=== PATIENT | female | born 1940 | race Caucasian/White ===

== ENCOUNTER 2016-04-11 12:34 | Inpatient (IN) | payer OTHER, MEDICARE ==
[~2016-04-11] VITALS: Ht 142.2 cm; Wt 63.5 kg
[~2016-04-11 12:34] MED LIST: ATENOLOL25 M1 PO; FLEXERIL 10MG T10 MG PO; HYDROCHLOROTHIA25 M1 PO; LISINOPRIL20 M1 PO; MEDROL 2 MG TABL2 MG PO; SIMVASTATIN40 M1 PO; TYLENOL #31 TAB PO
--- NOTE | 2016-04-11 12:47 | NUR ---
PT TO ED FOR HYPOTENSION AND LOW RBC'S. PT WAS AT DR LEWIS'S OFFICE TODAY FOR IVF FOR DEHYDRATION AND WAS FOUND TO HAVE A BP OF 70/50 AND BLOODWORK SHOWED HGB OF 8. PT C/O DIZZINESS, WEAKNESS, DEHYDRATION AND LETHARGY. PH HAD CHEMO TREATMENT 1 WEEK AGO ON 04/04. PT'S LCW PORT ALREADY ACCESSED PEG DRIVER. PT DENIES ANY PAIN. CHANGED INTO GOWN. AWAITING PROVIDER EVAL.
--- NOTE | 2016-04-11 12:50 | NUR ---
PT TO ROOM 18 IN W/C. BP NOTED SIGNIFICANTLY IMPROVED FROM [facility]. AWAKE AND ALERT. AWAITING EVAL.
[2016-04-11] MEDS ORDERED: ASPIRIN81 M4 PO (12:52)
[2016-04-11] MEDS ORDERED: FOLIC ACID1 M1 PO (12:53)
[2016-04-11] MEDS ORDERED: DAILY MULTIPLE1 EACH PO (12:54)
[2016-04-11] MEDS ORDERED: PYRIDOXINE HCL500 MG PO (12:56)
--- NOTE | 2016-04-11 13:02 | NUR ---
SEEN BY NUZHAT MCKEON.
--- NOTE | 2016-04-11 13:16 | ED AMS/SEIZURE/WEAK/DIZZY ---
History of Present Illness General Chief Complaint: General Adult Stated Complaint: SENT BY CANCER FOR BLOOD TRANSFUSION Source: patient, family, old records, PCP Exam Limitations: no limitations Allergies Coded Allergies: NO KNOWN ALLERGIES (11/30/15) Reconcile Medications Aspirin (Aspirin*) 81 MG TAB.CHEW 1 TAB PO DAILY HEART HEALTH (Reported) Atenolol 25 MG TABLET 1 TAB PO DAILY HEART (Reported) Folic Acid 1 MG TABLET 1 TAB PO DAILY SUPPLEMENT (Reported) Hydrochlorothiazide 25 MG TABLET 1 TAB PO DAILY WATER PILL (Reported) Lisinopril 20 MG TABLET 1 TAB PO DAILY HEART (Reported) Multivitamin (Daily Multiple Vitamin) 1 EACH TABLET 1 TAB PO DAILY SUPPLEMENT (Reported) Pyridoxine HCl 500 MG TABLET 1 TAB PO DAILY SUPPLEMENT (Reported) Simvastatin (Simvastatin*) 40 MG TABLET 1 TAB PO QPM CHOLESTEROL (Reported) Triage Note: PT TO ED FOR HYPOTENSION AND LOW RBC'S. PT WAS AT DR LEWIS'S OFFICE TODAY FOR IVF FOR DEHYDRATION AND WAS FOUND TO HAVE A BP OF 70/50 AND BLOODWORK SHOWED HGB OF 8. PT C/O DIZZINESS, WEAKNESS, DEHYDRATION AND LETHARGY. PH HAD CHEMO TREATMENT 1 WEEK AGO ON 04/04. 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 PT DENIES ANY PAIN. CHANGED INTO GOWN. AWAITING PROVIDER EVAL. Triage Nurses Notes Reviewed? yes HPI: 75-year-old female with breast cancer, currently on chemotherapy, recently had her fifth of 6 treatments last , she gets chemotherapy every 3 weeks, sees Dr. martinez from the cancer Center, she was there today because of generalized weakness. Over the last few weeks, she has had significant diarrhea and loss of appetite. She states she does not eat or drink anything throughout the day. Her diarrhea is loose brown and watery and she hasn't multiple times per day. She is feeling generalized weakness fatigue and loss of appetite. At the appointment today her blood pressure was 70, she was given IV fluids which did not help her symptoms and she was sent here for evaluation and probable admission. They jaime labs, hemoglobin of 8, Dr. martinez recommends giving her a transfusion of blood as well. I discussed the patient with him. She denies any abdominal pain, no fever, no cough or congestion. Symptoms are moderate (MIKE NOLAND,DOLORES) Vital Signs & Intake/Output Vital Signs & Intake/Output Vital Signs Date Time Temp Pulse Resp B/P Pulse O2 O2 Flow FiO2 Ox Delivery Rate 04/14 2333 98.0 87 18 160/80 97 Room Air 04/14 1529 97.7 61 18 160/72 97 04/14 0952 150/70 04/14 0952 150/70 04/14 0815 98.4 80 20 160/80 97 Room Air ED Intake and Output 04/15 0000 04/14 1200 Intake Total 600 70 Output Total 600 Balance 0 70 Intake, IV 20 Intake, Oral 600 50 Number 1 3 Bowel Movements Output, Urine 600 Past History Travel History Traveled to [place] past 21 day No Medical History Any Pertinent Medical History? see below for history Cardiovascular: hypertension, hyperlipidemia Cancer(s): breast cancer Surgical History Surgical History: masectomy Psychosocial History What is your primary language Sudanese Tobacco Use: Quit >30 days ago ETOH Use: denies use Illicit Drug Use: denies illicit drug use Family History Hx Contributory? No (DOLORES FUNES) Review of Systems Review of Systems Constitutional: Reports: see HPI. EENTM: Reports: no symptoms. Respiratory: Reports: no symptoms. Cardiovascular: Reports: no symptoms. GI: Reports: diarrhea. Genitourinary: Reports: no symptoms. Musculoskeletal: Reports: no symptoms. Skin: Reports: no symptoms. Neurological/Psychological: Reports: no symptoms. Hematologic/Endocrine: Reports: no symptoms. Immunologic/Allergic: Reports: no symptoms. All Other Systems: Reviewed and Negative (DOLORES FUNES) Physical Exam Physical Exam General Appearance: no apparent distress Comments: Mildly cachectic female, appears mildly pale, Lying on stretcher in no acute distress HEENT: Atraumatic, extraocular motion intact Neck: Supple, no lymphadenopathy Back: Nontender Respiratory: No respiratory distress clear to auscultation bilateral. Heart: Regular rate and rhythm no murmur Abdomen: Soft nontender nondistended normal bowel sounds Extremities: No edema, full range of motion Neuro: Alert and oriented x3 Psych: Mood affect normal, normal memory normal judgment. Skin: Warm and dry, no rash on exposed skin Core Measures ACS in differential dx? Yes CVA/TIA Diagnosis: No Severe Sepsis Present: No Septic Shock Present: No (DOLORES FUNES) Progress Differential Diagnosis: arrythmia, alcohol intoxication, anemia, benign positional vertigo, CVA/stroke, dehydration, drug intoxication, encephalitis, electrolyte imbalance, GI bleed, hypoglycemia, hypoxia, intracranial Hem., intracranial mass/tumor, labrynthitis, meningitis, Meniere's disease, migraine ENRIQUEZ, multiple sclerosis, pneumonia, postural hypotension, presyncope, post- traumatic vertigo, sepsis, seizure disorder, subarachnoid Hem., UTI/pyelo, vertebrobasilar insuff Initial ED EKG: NSR, 82 bpm,. diffuse ns t wave inversion, new from previous from 11/25 Rhythm Strip: normal sinus rhythm Comments: Potassium 2.9 and magnesium 0.7. She has a slightly abnormal EKG with nonspecific findings of diffuse T-wave inversion which is new from her previous. I suspect this may be due to her I abnormalities. She is given 40 mEq of potassium by mouth, 20 mEq of potassium IV, 2 g of magnesium IV, a liter of IV fluid and a unit of packed red blood cells was also ordered for her due to a hemoglobin of 7 and hematocrit of 22 with patient being symptomatic with generalized weakness as recommended by her oncologist. She was seen by Dr. Lim as well. We'll admit her to the telemetry floor. Call placed to Dr. Mosqueda. ([facility] NUZHATDOLORES) Plan of Care: Orders Procedure Date/time Status MAGNESIUM 04/15 599 Active CBC WITHOUT DIFFERENTIAL 04/15 599 Active BASIC ELECTROLYTES PLUS BUN&CR 04/15 599 Active PT Evaluate & Treat 04/14 UNK Active Current Medications Sig/Colten Start time Last Medication Dose Stop Time Status Admin Simethicone 40 MG Q6P PRN 04/15 0130 AC (Mylicon) Potassium Chloride 20 MEQ ONCE ONE 04/14 0945 CAN (Klor) 04/14 0946 Sodium Chloride 2 SPRAY Q4P PRN 04/12 0745 AC (Nasal) Departure Departure Disposition: STILL A PATIENT Condition: Stable Clinical Impression Primary Impression: Hypomagnesemia Secondary Impressions: Abnormal EKG Diarrhea Qualifiers: Diarrhea type: unspecified type Qualified Code: R19.7 - Diarrhea, unspecified Hypokalemia Hyponatremia Hypotension Qualifiers: Hypotension type: other hypotension type Qualified Code: I95.89 - Other hypotension Symptomatic anemia Referrals: KLEBER MOSQUEDA MD (PCP/Family) Departure Forms: Customer Survey General Discharge Information Admission Note Spoke With: KLEBER MOSQUEDA MD Documentation of Exam: Documentation of any treatments & extenuating circumstances including Concerns Regarding Discharge (functional status, medication knowledge or non-compliance, living conditions, etc.) that warrant an admission rather than observation: 75-year-old female on chemotherapy with several weeks of diarrhea, any of generalized weakness, hypotension, dehydration, hypomagnesemic and hypokalemic with EKG changes. Requires supplementation, she is felt outpatient treatment. She will require several days of replenishment and serial checks of her potassium and magnesium (DOLORES FUNES) PA/RECRUITING AND SELECTION CONSULTANT Co-Sign Statement Statement: ED Attending supervision documentation- [X] I saw and evaluated the patient. I have also reviewed all the pertinent lab results and diagnostic results. I agree with the findings and the plan of care as documented in the PA's/RECRUITING AND SELECTION CONSULTANT's documentation. [] I have reviewed the ED Record and agree with the PA's/RECRUITING AND SELECTION CONSULTANT's documentation. [] Additions or exceptions (if any) to the PAs/RECRUITING AND SELECTION CONSULTANT's note and plan are summarized below: [] (SARAY RIVERO,DOUGLAS Hendricks) Critical Care Note Critical Care Note Critical Care Time: 30-74 min (DOLORES FUNES)
--- NOTE | 2016-04-11 13:41 | NUR ---
MEDICATED PER EMAR FOR C/O DIARRHEA. NO OTHER ACUTE COMPLAINTS PRESENTLY. BLOOD DRAWN FROM PORT (SST/LAV/BLUE/LAY/PINK) AND PORT HEP-LOCKED PER PROTOCOL. UP TO COMMODE WITH ASSIST FROM FAMILY, URINE TRIO SENT. NO COMPLAINTS AT THIS TIME, AWAITING RESULTS.
[2016-04-11 13:48] LABS: ABSOLUTE BASOPHIL COUNT 0 /CUMM (0.0-0.2); ABSOLUTE EOSINOPHIL COUNT 0 /CUMM (0.0-0.7); ABSOLUTE GRANULOCYTE CT 4.6 /CUMM (1.4-6.5); ABSOLUTE LYMPH COUNT 1.4 /CUMM (1.2-3.4); ABSOLUTE MONOCYTE COUNT 1.2 /CUMM (0.10-0.60); BASOPHIL % 0.3 % (0.0-2.0); EOSINOPHIL % 0.1 % (0-5); GRANULOCYTE % 63.4 % (42.2-75.2); HEMATOCRIT 22.7 % (37-47); MEAN CORPUSCULAR HGB 31.1 PG (27.0-31.0); MEAN CORPUSCULAR HGB CONC 33.5 G/DL (33.0-37.0); MEAN CORPUSCULAR VOLUME 92.7 FL (81.0-99.0); MEAN PLATELET VOLUME 9.5 FL (7.4-10.4); RBC DISTRIBUTION WIDTH 19.6 % (11.5-14.5); RED BLOOD CELL CT 2.44 /CUMM (4.20-5.40); WHITE BLOOD CELL COUNT 7.3 /CUMM (4.8-10.8)
[2016-04-11 14:00] LABS: PLATELET COUNT 60 /CUMM (130-400)
--- NOTE | 2016-04-11 14:05 | NUR ---
LAB AT BEDSIDE FOR ABO CONFIRMATION. FAMILY REQUESTING ANOTHER RN DRAW OFF PT'S PORT, WAXER STATING IT NEEDS TO BE DONE BY HIM. PT AGREES TO ATTEMPT FOR PERIPHERAL DRAW.
--- NOTE | 2016-04-11 14:12 | NUR ---
CRITICAL TEST RESULTS [id number] LAMONT WILKES 75 F TESTS AND RESULTS: K 2.9, MAG 0.7 Results received and read back by: ANNA HEWITT Results received date and time: 04/11/16 1412 The following provider was notified of the results, and read the results back: NUZHAT MCKEON Notified date and time: 04/11/16 at 1410
--- NOTE | 2016-04-11 14:34 | NUR ---
PER PA PT TO GET MAG FIRST F/B IV K, ORAL K GIVEN WITHOUT ISSUE.
--- NOTE | 2016-04-11 14:55 | NUR ---
PLACED ON TELE MONITOR, NSR 80S. 2ND BAG MAG SULFATE INFUSING. KCL TO INFUSE AFTER. PT AND FAMILY REFUSING PIV PLACEMENT AT THIS TIME, AWARE THAT THIS WILL DELAY TRANSFUSION AND STILL REFUSING PT CAN ONLY HAVE PIV PLACED IN LEFT ARM R/T PRIOR SURGERY AND HAS LIMITED ACCESS IN THAT ARM. TELE RESIDENT NOTIFIED AND NNO AT THIS TIME.
--- NOTE | 2016-04-11 15:22 | History & Physical ---
See Addendum SCAR RIVEROMARGRET 04/11/16 1521: General Information and HPI MD Statement: I have seen and personally examined LAMONT WILKES and documented this H&P. The patient is a 75 year old F who presented with a patient stated chief complaint of weakness, diarrhea and electrolyte abnormality. Source of Information: patient, family, old records Exam Limitations: no limitations History of Present Illness: Ms. Lamont Wilkes is a pleasant 75 year old female with PMH HTN, HLD and right breast cancer s/p lumpectomy currently on chemotherapy who was sent in from her oncologist Dr. Radha Guzman's office for electrolyte abnormality and anemia. Per patient, she had her 5th out of 6th round of chemotherapy on , 04/04/16, after which she developed diarrhea beginning on Friday, . Since Friday, she has had daily, 5-6 episodes of non-bloody, brown diarrhea that is noted to be watery. Associated symptoms with this diarrhea include weakness, decreased appetite and decreased oral intake. Patient has tried immodium to no avail. Due to unrelenting diarrhea, patient scheduled an appointment with Dr. Prabhakar today, at which time she was noted to be hypotensive , dehydrated and weak with electrolyte abnormalities including hypomagnesmia, hypokalemia and anemia. Currently, patient denies fever, chills, dizziness, chest pain, palpitaitons, shortness of breath, nausea, vomiting, abdominal pain, cramps, dysuria, foul smelling urine, hematuria or difficulty ambulating. Social history is negative for alcohol, tobacco and illicit drug use. Past surgical history is only significant for right breast cancer s/p lumpectomy on 12/01/15. She follows with Dr. Radha Guzman as her oncologist and Dr. Mosqueda as her PCP. She is functionally independant and ambulates without assistance. Allergies/Medications Allergies: Coded Allergies: NO KNOWN ALLERGIES (11/30/15) Home Med list Aspirin (Aspirin*) 81 MG TAB.CHEW 1 TAB PO DAILY HEART HEALTH (Reported) Atenolol 25 MG TABLET 1 TAB PO DAILY HEART (Reported) Folic Acid 1 MG TABLET 1 TAB PO DAILY SUPPLEMENT (Reported) Hydrochlorothiazide 25 MG TABLET 1 TAB PO DAILY WATER PILL (Reported) Lisinopril 20 MG TABLET 1 TAB PO DAILY HEART (Reported) Multivitamin (Daily Multiple Vitamin) 1 EACH TABLET 1 TAB PO DAILY SUPPLEMENT (Reported) Pyridoxine HCl 500 MG TABLET 1 TAB PO DAILY SUPPLEMENT (Reported) Simvastatin (Simvastatin*) 40 MG TABLET 1 TAB PO QPM CHOLESTEROL (Reported) Compliance With Home Meds: GOOD Past History Travel History Traveled to [place] past 21 day No Medical History Cardiovascular: hypertension, hyperlipidemia Cancer(s): breast cancer Surgical History Surgical History: masectomy Past Family/Social History Psychosocial History Where do you live? Home Who Do You Live With? spouse Primary Language: Brazilian Smoking Status: Never Smoked ETOH Use: denies use Illicit Drug Use: denies illicit drug use Functional Ability ADLs Independent: dressing, eating, toileting, bathing. Ambulation: independent IADLs Independent: shopping, housework, finances, food prep, telephone, transportation , medication admin. Review of Systems Review of Systems Constitutional: Reports: malaise, weakness. Denies: chills, fever, unexplained weight loss. EENTM: Reports: throat pain (S/P chemotherapy). Denies: blurred vision, visual changes , nasal congestion, epistaxis. Cardiovascular: Denies: chest pain, edema, orthopena, palpitations, peripheral edema, syncope. Respiratory: Denies: cough, orthopnea, short of breath, sputum production, wheezing. GI: Reports: diarrhea. Denies: abdominal pain, bloating, constipation, distention, bowel incontinence, melena, nausea, bloody stool, vomiting. Genitourinary: Denies: dysuria, hematuria, pain, urgency. Musculoskeletal: Denies: joint pain. Skin: Denies: lesions, rash. Neurological/Psychological: Denies: confusion, headache, paresthesia. Hematologic/Endocrine: Denies: bruising, bleeding. Immunologic/Allergic: Denies: splenectomy. All Other Systems: Reviewed and Negative Exam & Diagnostic Data Last 24 Hrs of Vital Signs/I&O Vital Signs Date Time Temp Pulse Resp B/P Pulse O2 O2 Flow FiO2 Ox Delivery Rate 04/11 1803 98.1 66 18 106/62 98 Room Air 04/11 1648 97.5 79 18 102/51 97 Room Air 04/11 1528 97.2 72 20 98/50 99 Room Air 04/11 1438 96 04/11 1406 98.1 70 20 86/46 96 Room Air 04/11 1246 97.5 84 18 111/52 99 Intake & Output 04/11 1600 04/11 0800 04/11 0000 Intake Total 200 Output Total 60 Balance 140 Intake, Oral 200 Number 1 Bowel Movements Output, Urine 60 Patient 140 lb Weight Physical Exam General Appearance Alert, Oriented X3, Cooperative, No Acute Distress Skin No Rashes, No Significant Lesion, Skin surrounding left wall port clean, intact without signs of erythema or infection. Port covered by clean bandage. HEENT Atraumatic, PERRLA, EOMI, Dry mucous membranes Neck Supple, No JVD Lymphatic Cervical nl Cardiovascular Regular Rate, Normal S1, Normal S2, No Murmurs Lungs Clear to Auscultation, Normal Air Movement Abdomen Normal Bowel Sounds, Soft, No Tenderness, No Masses Neurological Normal Speech, Normal Tone Extremities No Clubbing, No Cyanosis, Minimal bilateral lower extremity edema Vascular Pulses Symmetrical Last 24 Hrs of Labs/Pavel: Laboratory Tests 04/11/16 1336: Urinalysis LIGHT H, Urine Color YEL, Urine Clarity HAZY H, Urine pH 6.0, Ur Specific [place] 1.010, Urine Protein TRACE H, Urine Ketones NEG, Urine Nitrite NEG, Urine Bilirubin NEG, Urine Urobilinogen 0.2, Ur Leukocyte Esterase TRACE H , Ur Microscopic SEDIMENT EXAMINED, Urine RBC >75 H, Urine WBC 5-10 H, Ur Epithelial Cells FEW, Urine Bacteria FEW H, Hyaline Casts RARE H, Urine Hemoglobin LARGE H, Urine Glucose NEG 04/11/16 1330: Anion Gap 8, Estimated GFR 40 L, BUN/Creatinine Ratio 15.4, Glucose 116 H, Calcium 7.6 L, Magnesium 0.7 *L, Total Bilirubin 0.5, AST 19, ALT 34, Alkaline Phosphatase 58, Troponin I < 0.01, Total Protein 4.5 L, Albumin 2.5 L, Globulin 2.0, Albumin/Globulin Ratio 1.3, CBC w Diff MAN DIFF ORDERED, RBC 2.44 L, MCV 92.7, MCH 31.1 H, RDW 19.6 H, MPV 9.5, Gran % 63.4, Lymphocytes % 19.1 L, Monocytes % 17.1 H, Eosinophils % 0.1, Basophils % 0.3, Absolute Granulocytes 4.6, Segmented Neutrophils 56, Band Neutrophils 10 H, Absolute Lymphocytes 1.4, Lymphocytes 22, Monocytes 12 H, Absolute Monocytes 1.2 H, Absolute Eosinophils 0, Absolute Basophils 0, Platelet Estimate DECREASED, Poikilocytosis 1+, Anisocytosis 1+, PUBS MCHC 33.5 Microbiology 04/11 1336 URINE ROUT: Urine Culture - RECD Diagnostic Data EKG Results NSR, HR 82, no ST changs, QTC 430. New T wave inversions noted in leads II, aVF, V3-V6. Other Results Echocardiogram 03/26/16: CONCLUSIONS Small left ventricular cavity. No obvious regional wall motion abnormalities. Normal left ventricular ejection fraction visually estimated at > 65%. Abnormal relaxation filling pattern of the left ventricle for age (stage 1 diastolic dysfunction). Normal right ventricular size and function. Normal atrial size. Mild mitral regurgitation. Trace aortic regurgitation. Mild tricuspid regurgitation. Mild pulmonary hypertension. Mildly dilated inferior vena cava. Assessment/Plan Assessment: Ms. Wilkes is a pleasant 75 year old female with PMH HTN, HLD and right breast cancer s/p partial resection in November of 2015 currently undergoing chemotherapy with Dr. Radha Guzman who was sent in from his office for anemia and electrolyte abnormalities. Patient endorsed a 6 day history of 5-6 episodes of non-bloody diarrhea daily with associated decreased oral intake of food and fluids. She currently endorses generalized weakness, throat pain and diarrhea. In the ED: Vital signs showed T 98.1, HR 84, RR 18, BP 111/52 and O2 saturation of 99% on room air. Labs showed WBC 7.3 with 10 bands, H&H 7.6/22.7, Plt 60, Na 131, K 2.9, Cl 96, HCO3 27, BUN/cre 20/1.3 (baseline cre 1), corrected Ca 8.8, Magnesium 0.7, and troponin <0.01. UA was showed high proteins, trace leukocyte esterase, >75 RBCs, 5-10 WBCs, few epithelial cells and few bacteria. EKG was obtained and showed NSR HR 82, QTC 430, and no ST changes. There were NEW T wave inversions in leads II, aVF, and V3-V6. Patient is admitted to the telemetry floor and the following is the management: 1. Acute diarrhea after chemotherapy * Patient endorses recurrent diarrhea after every round of chemotherapy * Dr. Guzman aware of the admission, will follow up recommendations * Patient s/p lamotil while in the ED * Patient reports she will attempt to eat, start heart healthy diet but consider changing diet to liquid if she does not tolerate well * IVF with NS to continue, however consider switching to D51/2NS if patient does not have proper oral intake * Guiac all stools 2. Dehydration with CHELY and hypotension * Dehydration likely 2/2 profuse diarrhea without repletion (due to decreased PO intake) * GFR dropped by >25% (baseline GFR of 55, now GFR is 40) * Patient noted to be hypotensive to 70/40 in the oncology office * S/p 1 L NS and another 500 cc bolus ordered for now * BP has responded well to fluids, watch BP closely and consider transfer to ICU if her BP drops * Hold antihypertensives for now, vital signs Q shift * Check orthostatiics * BEP for 1929, monitor renal function 3. Hypokalemia and hypomagnesemia * Likely secondary to chemotherapy, active diarrhea and poor PO intake * Patient s/p 2 gm Mag Sulfate, 30 meq total KCL and 40 meq KDur PO * F/U repeat BEP with magnesium at 1929 and replete as needed 4. T wave inversions, leads II, aVF, V3-V6 * Continuous telemetry monitoring * Cardiology consult with Dr. Manzanares placed for today, f/u recommendations * Rule out ACS with serial troponin and EKG * Prior echocardiogram was on 03/29 and showed normal EF to >65% and stage 1 diastolic dysfunction without wall motion abnormalities 4. Normocytic anemia and thrombocytopenia * Likely 2/2 current chemotherapy * Monitor CBC * Patient typed & crossed, will receive 1U PRBC today for goal Hgb >8 * Guiac all stools * Hold pharm VTE prophylaxis 5. Asymptomatic bateriuria * UA shows high proteins, trace leukocyte esterase, >75 RBCs, 5-10 WBCs, few epithelial cells and few bacteria. * Patient currently asymptomatic without dysuria, foul-smelling urine etc. * Urine culture and blood cultures x 2 sent, f/u results * Monitor for fevers, consider starting antibiotics she spikes FULL CODE DVT Prophylaxis: ALPS Mild pain pathway As Ranked By This Provider Problem List: 1. Hypomagnesemia 2. Hypokalemia 3. Symptomatic anemia 4. Hypotension Qualifiers Hypotension type: other hypotension type Qualified Code: I95.89 - Other hypotension 5. Hyponatremia 6. Diarrhea Qualifiers Diarrhea type: unspecified type Qualified Code: R19.7 - Diarrhea, unspecified 7. Abnormal EKG Core Measures/Miscellaneous Acute Coronary Syndrome ACS Diagnosis: No Cerebrovascular Accident CVA/TIA Diagnosis: No Congestive Heart Failure CHF Diagnosis: No Venous Thromboembolism VTE Risk Factors: Acute medical illness, Age > 40, Cancer/chemo/oth therapy, Obesity No [facility] VTE prophylaxis d/t: No contraindications No VTE Pharm Prophylaxis d/t: Medical contraindication (Concern for bleeding, anemia), Platelets below ref range VTE Diagnosis: No VTE Type: NONE VTE Confirmed by (Test): NONE Severe Sepsis Severe Sepsis Present: No Septic Shock Septic Shock Present: No Miscellaneous Documentation Attending Case Discussed With: Dr. Mosqueda Primary Care Physician: KLEBER MOSQUEDA MD Patient sees these Specialists Dr. Guzman Level of Patient Care: Telemetry STEPH CARTER 04/11/16 1607: Resident Review Statement Resident Statement: examined this patient, discussed with fashion styling intern, agreed with fashion styling intern, discussed with family, reviewed EMR data (avail), discussed with nursing Other Findings: This is a 75 -year-old lady with past medical history significant for hypertension, hyperlipidemia, breast cancer, on chemotherapy (fifth course of chemotherapy was last , total of 6 courses) who was sent to the ED from her oncologist office (Dr. Guzman) to receive blood transfusion. The patient reports generalized fatigue and loss of appetite for the past few weeks which worsened after she received her chemotherapy last . She also reports nausea, vomiting, diarrhea. Today at her oncologist office she was noted to be hypotensive to 70s, her symptoms did not improve with IV fluids and she was sent to the ED for further workup and evaluation. Please see above for further details. Vital signs on admission: Temperature 98.1, pulse rate 70, respiratory rate 20, blood pressure 86/46 which improved to 98/50, oxygen saturation 96% on room air. Physical exam at the time of admission: No acute distress, lying comfortably on the bed, cachectic, pale skin. HEENT: NCAT, PERRLA, EOMI, dry mucous membranes. Neck: Supple, no JVD, no carotid bruit, no lymphadenopathy. CV: RRR, no murmur. Lungs: CTA BL. Abdomen: Soft, normal bowel sounds, NT, ND. Extremities: No edema, pulses normal and symmetrical. Neurology: AAOx3, CN 3-12 intact. Normal sensation, normal reflexes. Skin: No lesion, no rash, port left side intact. Available lab and imaging data reviewed. CBC significant for hemoglobin 7.6, hematocrit 22.7. BP is significant for sodium 131, potassium 2.9, creatinine 1.3, GFR 40, calcium 7.6, magnesium 0.7, albumin 2.5. (Corrected calcium 8.7). EKG: Sinus rhythm, rate 82, T-wave inversion in lead 2, V2 through V6, no ST-T wave abnormalities. QTC 430. The patient received IV magnesium (1 g) and IV potassium (20). She also received 1 L IV normal saline bolus, blood pressure improved to 98/59 Problem list #1 hypokalemia #2 hypomagnesemia #3 EKG changes #4 anemia #5 CHELY #6 breast cancer on chemotherapy #7 Hx of hypertension: Now hypotensive. #8 hyperlipidemia #9 Positive UA; asymptomatic #10 bandemia Plan -Admit to telemetry -Vitals per protocol -Orthostatics -Check stools for Hemoccult -Rule out ACS with serial troponins and EKG -IV fluids; received 1 L normal saline bolus and 500 normal saline bolus, will maintain her on 100 mL/h normal saline as maintenance. -Patient will receive 1 unit of PRBC; goal Hgb >8 -Cardiology consult -Oncologist, Dr. Guzman aware -Received magnesium and potassium IV in the ED; recheck labs this evening and replete electrolytes accordingly. -DVT prophylaxis with Alps. -Patient is full code
--- NOTE | 2016-04-11 15:30 | NUR ---
AFTER CONSULTING PHARMACY, ED PA AND HOUSE STAFF AND COMMUNITY DEVELOPMENT PLANNER IV KCL CHANGED TO CENTRAL CONCENTRATION 20MEQ/100CC TO RUN THROUGH PORT OVER 1 HOUR. INFUSING AT THIS TIME. REMAINS ON TELE MONITOR. BLOOD TO INFUSE AFTER KCL OVER 2-3 HOURS. SEEN BY HOUSE STAFF. AWAITING ADMISSION. NO COMPLAINTS AT THIS TIME.
--- NOTE | 2016-04-11 15:46 | NUR ---
PT TOP ROOM 175 BED 1
--- NOTE | 2016-04-11 15:54 | NUR ---
VS DISCUSSED WITH TELE RESIDENT. 2ND NS BOLUS OF 500CC UP NOW. PER RESIDENT PT IS OK FOR TELE WITH BP OVER 90 SYSTOLIC.
--- NOTE | 2016-04-11 16:51 | NUR ---
REPORT CALLED TO [facility] [address]. TELE RESIDENT PAGED WITH MOST RECENT VS AND STATING PT IS STABLE FOR TELE. MSG LEFT FOR TRANSPORT. PT/FAMILY AWARE.
--- NOTE | 2016-04-11 17:10 | NUR ---
DISTRIBUTION CALLED TO CONFIRM RECIEPT OF MESSAGE AND STATING WILL BE HERE IN 5 MIN.
[2016-04-11 18:03] VITALS: BP 106/62
--- NOTE | 2016-04-11 18:29 | Admission Certification ---
Admission Certification Certification Statement - As attending physician, I certify that at the time of - admission, based on clinical presentation, severity of - symptoms, need for further diagnostic testing and - therapeutic interventions, and risk of adverse outcomes - without in-hospital treatment, in my clinical assessment, - this patient requires an acute hospital stay for a minimum - of two nights or longer. I have also considered psychsocial - factors such as support system, advanced age, financial - issues, cognitive issues, and failed out-patient treatments, - past re-admission history, safety of patient, and lack of - compliance as applicable. Specific rationale supporting this admission is: Weakness, anemia secondary to chemotherapy her breast cancer nausea, anorexia, diarrhea and electrolyte imbalance hypokalemia, hyponatremia hypomagnesemia
--- NOTE | 2016-04-11 18:33 | PN- Att Addend ---
Attending Addendum Attending Brief Note 75-year-old white female being treated for breast cancer with chemotherapy, went to see the doctor today, found to be anemic besides that she was found to be slightly dehydrated. Patient having frequent diarrhea and in the ER her electrolytes were all abnormal, with hypokalemia and hyponatremia and hypomagnesemia. Also some EKG abnormalities not present before. Patient will be admitted to telemetry, her first troponin is negative we'll replace her electrolytes needed. Will have serial troponins will get her transfusion, cardiology evaluation and oncology follow-up. Laboratory Tests 04/11 04/11 1336 1330 Chemistry Sodium (137 - 145 mmol/L) 131 L Potassium (3.5 - 5.1 mmol/L) 2.9 *L Chloride (98 - 107 mmol/L) 96 L Carbon Dioxide (22 - 30 mmol/L) 27 Anion Gap (5 - 16) 8 BUN (7 - 17 mg/dL) 20 H Creatinine (0.5 - 1.0 mg/dL) 1.3 H Estimated GFR (>60 ml/min) 40 L BUN/Creatinine Ratio (7 - 25 %) 15.4 Glucose (65 - 99 mg/dL) 116 H Calcium (8.4 - 10.2 mg/dL) 7.6 L Magnesium (1.6 - 2.3 mg/dL) 0.7 *L Total Bilirubin (0.2 - 1.3 mg/dL) 0.5 AST (14 - 36 U/L) 19 ALT (9 - 52 U/L) 34 Alkaline Phosphatase (<127 U/L) 58 Troponin I (< 0.11 ng/ml) < 0.01 Total Protein (6.3 - 8.2 g/dL) 4.5 L Albumin (3.5 - 5.0 g/dL) 2.5 L Globulin (1.9 - 4.2 gm/dL) 2.0 Albumin/Globulin Ratio (1.1 - 2.2 %) 1.3 Hematology CBC w Diff MAN DIFF ORDERED WBC (4.8 - 10.8 /CUMM) 7.3 RBC (4.20 - 5.40 /CUMM) 2.44 L Hgb (12.0 - 16.0 G/DL) 7.6 L Hct (37 - 47 %) 22.7 L MCV (81.0 - 99.0 FL) 92.7 MCH (27.0 - 31.0 PG) 31.1 H RDW (11.5 - 14.5 %) 19.6 H Plt Count (130 - 400 /CUMM) 60 L MPV (7.4 - 10.4 FL) 9.5 Gran % (42.2 - 75.2 %) 63.4 Lymphocytes % (20.5 - 51.1 %) 19.1 L Monocytes % (1.7 - 9.3 %) 17.1 H Eosinophils % (0 - 5 %) 0.1 Basophils % (0.0 - 2.0 %) 0.3 Absolute Granulocytes (1.4 - 6.5 /CUMM) 4.6 Segmented Neutrophils (42.2 - 75.2 %) 56 Band Neutrophils (0.0 - 5.0 %) 10 H Absolute Lymphocytes (1.2 - 3.4 /CUMM) 1.4 Lymphocytes (20.5 - 51.1 %) 22 Monocytes (1.7 - 9.3 %) 12 H Absolute Monocytes (0.10 - 0.60 /CUMM) 1.2 H Absolute Eosinophils (0.0 - 0.7 /CUMM) 0 Absolute Basophils (0.0 - 0.2 /CUMM) 0 Platelet Estimate (ADEQUATE) DECREASED Poikilocytosis 1+ Anisocytosis 1+ PUBS MCHC (33.0 - 37.0 G/DL) 33.5 Urines Urinalysis LIGHT H Urine Color (YEL,AMB,STR) YEL Urine Clarity (CLEAR) HAZY H Urine pH (5.0 - 8.0) 6.0 Ur Specific [place] (1.001 - 1.035) 1.010 Urine Protein (NEG,<30 MG/DL) TRACE H Urine Ketones (NEG) NEG Urine Nitrite (NEG) NEG Urine Bilirubin (NEG) NEG Urine Urobilinogen (0.1 - 1.0 EU/dl) 0.2 Ur Leukocyte Esterase (NEG) TRACE H Ur Microscopic SEDIMENT EXAMINED Urine RBC (0 - 5 /HPF) >75 H Urine WBC (0 - 2 /HPF) 5-10 H Ur Epithelial Cells (NONE,FEW) FEW Urine Bacteria (NEG/NONE) FEW H Hyaline Casts (0/LPF) RARE H Urine Hemoglobin (NEG) LARGE H Urine Glucose (N MG/DL) NEG
--- NOTE | 2016-04-11 19:49 | Cons- Cardiology ---
General Information and HPI Consulting Request Date of Consult: 04/11/16 Requested By: KLEBER REYNOSO MD Reason for Consult: Abnormal electrocardiogram in the setting of multiple electrolyte abnormalities and anemia. Source of Information: patient, old records Exam Limitations: no limitations History of Present Illness: I am asked to see this 75-year-old female because of EKG abnormalities. This patient has a history of hypertension and dyslipidemia under good control. She has no history of heart disease. She does not give a history of chest pain on exertion, dyspnea on exertion, palpitations or any other cardiac symptoms. She is recently being treated with chemotherapy for breast cancer. After her last treatment she developed severe diarrhea and dehydration. She was seen by her oncologist today who sent her to the hospital where she was found to have BUN of 20, creatinine 1.3, sodium 131, potassium 2.9, magnesium 0.7, calcium 7.6. Initial troponin was negative. Hemoglobin was 7.6 and hematocrit 22.7. So far she has had her electrolytes repleted and is receiving blood. Repeat chemistries and CBCs are pending. She is feeling much better. Allergies/Medications Allergies: Coded Allergies: NO KNOWN ALLERGIES (11/30/15) Home Med List: Aspirin (Aspirin*) 81 MG TAB.CHEW 1 TAB PO DAILY HEART HEALTH (Reported) Atenolol 25 MG TABLET 1 TAB PO DAILY HEART (Reported) Folic Acid 1 MG TABLET 1 TAB PO DAILY SUPPLEMENT (Reported) Hydrochlorothiazide 25 MG TABLET 1 TAB PO DAILY WATER PILL (Reported) Lisinopril 20 MG TABLET 1 TAB PO DAILY HEART (Reported) Multivitamin (Daily Multiple Vitamin) 1 EACH TABLET 1 TAB PO DAILY SUPPLEMENT (Reported) Pyridoxine HCl 500 MG TABLET 1 TAB PO DAILY SUPPLEMENT (Reported) Simvastatin (Simvastatin*) 40 MG TABLET 1 TAB PO QPM CHOLESTEROL (Reported) Current Medications: Current Medications Sig/Colten Start time Last Medication Dose Route Stop Time Status Admin Aspirin 81 MG DAILY 04/11 1750 AC PO Atorvastatin Calcium 20 MG 1700 04/11 1700 AC PO Diphenoxylate HCl/ 2.5 MG ONCE ONE 04/11 1315 DC 04/11 Atropine PO 04/11 1316 1320 Folic Acid 1 MG DAILY 04/12 1000 AC PO Magnesium Sulfate 1 GM Q2H 04/11 1415 DC 04/11 Dextrose/Water 100 ML IV 04/11 1814 1455 Multivitamins 1 TAB DAILY 04/12 1000 AC Therapeutic PO Potassium Chloride 20 MEQ ONCE ONE 04/11 1515 DC / IV 04/11 1516 1527 Potassium Chloride 0 .STK-MED ONE 04/11 1421 DC PO Potassium Chloride 40 MEQ ONCE ONE 04/11 1415 CAN PO 04/11 1416 Potassium Chloride 10 MEQ Q1H 04/11 1415 DC IV 04/11 1516 Potassium Chloride 40 MEQ ONCE ONE 04/11 1415 DC 04/11 PO 04/11 1416 1434 Prochlorperazine 5 MG Q8 PRN 04/11 1830 AC PO Sodium Chloride 1,000 ML ONCE ONE 04/11 1630 AC / IV 04/12 0229 1647 Sodium Chloride 500 ML BOLUS ONE 04/11 1600 DC 04/11 IV 04/11 1659 1553 Sodium Chloride 1,000 ML BOLUS ONE 04/11 1415 DC / IV 04/11 1514 1412 Review of Systems Review of Systems: She has no other complaints in the review of systems Past History Travel History Traveled to [place] past 21 day No Medical History Blood Transfusion Hx: No Cardiovascular: hypertension, hyperlipidemia Musculoskeletal: ARTHRITIS Cancer(s): breast cancer Surgical History Surgical History: masectomy Psychosocial History Where Do You Live? Home Who Do You Live With? spouse Primary Language: Beninese Smoking Status: Former Smoker ETOH Use: denies use Illicit Drug Use: denies illicit drug use Functional Ability ADLs Independent: dressing, eating, toileting, bathing. Ambulation: independent IADLs Independent: shopping, housework, finances, food prep, telephone, transportation , medication admin. Exam & Diagnostic Data Vital Signs and I&O Vital Signs Date Time Temp Pulse Resp B/P Pulse O2 O2 Flow FiO2 Ox Delivery Rate 04/11 1938 Room Air 04/11 1803 98.1 66 18 106/62 98 Room Air 04/11 1648 97.5 79 18 102/51 97 Room Air 04/11 1528 97.2 72 20 98/50 99 Room Air 04/11 1438 96 04/11 1406 98.1 70 20 86/46 96 Room Air 04/11 1246 97.5 84 18 111/52 99 Intake & Output 04/11 1600 04/11 0800 04/11 0000 04/10 1600 04/10 0800 04/10 0000 Intake Total 200 Output Total 60 Balance 140 Intake, Oral 200 Number 1 Bowel Movements Output, Urine 60 Patient 140 lb Weight Physical Exam: This is an elderly appearing female, bald, alert and in no distress. HEENT exam is normal Neck Veins are not distended Carotids normal Chest is clear Heart reveals regular rhythm and no murmurs Extremities good pulses no edema Labs/Pavel Results: Laboratory Tests 04/11 04/11 04/11 1945 1930 1336 Chemistry Troponin I Pending Hematology CBC w Diff Cancelled WBC Cancelled RBC Cancelled Hgb Cancelled Hct Cancelled MCV Cancelled MCH Cancelled RDW Cancelled Plt Count Cancelled MPV Cancelled PUBS MCHC Cancelled Urines Urinalysis LIGHT H Urine Color (YEL,AMB,STR) YEL Urine Clarity (CLEAR) HAZY H Urine pH (5.0 - 8.0) 6.0 Ur Specific Sells (1.001 - 1.035) 1.010 Urine Protein (NEG,<30 MG/DL) TRACE H Urine Ketones (NEG) NEG Urine Nitrite (NEG) NEG Urine Bilirubin (NEG) NEG Urine Urobilinogen (0.1 - 1.0 EU/dl) 0.2 Ur Leukocyte Esterase (NEG) TRACE H Ur Microscopic SEDIMENT EXAMINED Urine RBC (0 - 5 /HPF) >75 H Urine WBC (0 - 2 /HPF) 5-10 H Ur Epithelial Cells (NONE,FEW) FEW Urine Bacteria (NEG/NONE) FEW H Hyaline Casts (0/LPF) RARE H Urine Hemoglobin (NEG) LARGE H Urine Glucose (N MG/DL) NEG 04/11 1330 Chemistry Sodium (137 - 145 mmol/L) 131 L Potassium (3.5 - 5.1 mmol/L) 2.9 *L Chloride (98 - 107 mmol/L) 96 L Carbon Dioxide (22 - 30 mmol/L) 27 Anion Gap (5 - 16) 8 BUN (7 - 17 mg/dL) 20 H Creatinine (0.5 - 1.0 mg/dL) 1.3 H Estimated GFR (>60 ml/min) 40 L BUN/Creatinine Ratio (7 - 25 %) 15.4 Glucose (65 - 99 mg/dL) 116 H Calcium (8.4 - 10.2 mg/dL) 7.6 L Magnesium (1.6 - 2.3 mg/dL) 0.7 *L Total Bilirubin (0.2 - 1.3 mg/dL) 0.5 AST (14 - 36 U/L) 19 ALT (9 - 52 U/L) 34 Alkaline Phosphatase (<127 U/L) 58 Troponin I (< 0.11 ng/ml) < 0.01 Total Protein (6.3 - 8.2 g/dL) 4.5 L Albumin (3.5 - 5.0 g/dL) 2.5 L Globulin (1.9 - 4.2 gm/dL) 2.0 Albumin/Globulin Ratio (1.1 - 2.2 %) 1.3 Hematology CBC w Diff MAN DIFF ORDERED WBC (4.8 - 10.8 /CUMM) 7.3 RBC (4.20 - 5.40 /CUMM) 2.44 L Hgb (12.0 - 16.0 G/DL) 7.6 L Hct (37 - 47 %) 22.7 L MCV (81.0 - 99.0 FL) 92.7 MCH (27.0 - 31.0 PG) 31.1 H RDW (11.5 - 14.5 %) 19.6 H Plt Count (130 - 400 /CUMM) 60 L MPV (7.4 - 10.4 FL) 9.5 Gran % (42.2 - 75.2 %) 63.4 Lymphocytes % (20.5 - 51.1 %) 19.1 L Monocytes % (1.7 - 9.3 %) 17.1 H Eosinophils % (0 - 5 %) 0.1 Basophils % (0.0 - 2.0 %) 0.3 Absolute Granulocytes (1.4 - 6.5 /CUMM) 4.6 Segmented Neutrophils (42.2 - 75.2 %) 56 Band Neutrophils (0.0 - 5.0 %) 10 H Absolute Lymphocytes (1.2 - 3.4 /CUMM) 1.4 Lymphocytes (20.5 - 51.1 %) 22 Monocytes (1.7 - 9.3 %) 12 H Absolute Monocytes (0.10 - 0.60 /CUMM) 1.2 H Absolute Eosinophils (0.0 - 0.7 /CUMM) 0 Absolute Basophils (0.0 - 0.2 /CUMM) 0 Platelet Estimate (ADEQUATE) DECREASED Poikilocytosis 1+ Anisocytosis 1+ PUBS MCHC (33.0 - 37.0 G/DL) 33.5 Diagnostic Data EKG Results Initial electrocardiogram on presentation at about 1:00 this afternoon shows sinus rhythm at a rate of 82 with diffuse nonspecific T-wave inversions her previous electrocardiogram in the system from 11/22/2015 was normal. Repeat EKG at 19:48 PM today shows sinus rhythm at a rate of 76 with very minor nonspecific T-wave changes. This is definitely improved from previous. CXR Results No chest x-ray was done. Other Results CONCLUSIONS Small left ventricular cavity. No obvious regional wall motion abnormalities. Normal left ventricular ejection fraction visually estimated at > 65%. Abnormal relaxation filling pattern of the left ventricle for age (stage 1 diastolic dysfunction). Normal right ventricular size and function. Normal atrial size. Mild mitral regurgitation. Trace aortic regurgitation. Mild tricuspid regurgitation. Mild pulmonary hypertension. Mildly dilated inferior vena cava. Wally Valle M.D. (Electronically Signed) Final Date: 27 March 2016 10:45 Assessment/Plan Assessment/Plan Mrs. Goodman presents with severe diarrhea, electrolyte depletion, dehydration, anemia. In this setting she has an abnormal electrocardiogram, showing nonspecific T-wave abnormalities. She does not have any significant underlying heart disease. She actually had an echocardiogram recently during her chemotherapy which was relatively normal. Her EKG done just now shows definite improvement in the ST and T waves. This is likely due to improvement in her electrolytes. I don't think she has any significant underlying heart disease. I think once her electrolytes are back to normal and assuming she has no arrhythmias, telemetry can be discontinued at that time, but I would keep monitoring overnight for now. She does not need a follow-up echocardiogram at this time. Copies To: BASSEM RIVERO,XENIA Barba; EDGARDO RIVERO,KLEBER Consult Acknowledgment - Thank you for your consult request.
[2016-04-11 22:22] LABS: ABSOLUTE BASOPHIL COUNT 0 /CUMM (0.0-0.2); ABSOLUTE EOSINOPHIL COUNT 0 /CUMM (0.0-0.7); ABSOLUTE GRANULOCYTE CT 7.8 /CUMM (1.4-6.5); ABSOLUTE LYMPH COUNT 0.9 /CUMM (1.2-3.4); ABSOLUTE MONOCYTE COUNT 0.8 /CUMM (0.10-0.60); BASOPHIL % 0.1 % (0.0-2.0); EOSINOPHIL % 0 % (0-5); GRANULOCYTE % 82.7 % (42.2-75.2); MEAN CORPUSCULAR HGB CONC 34.1 G/DL (33.0-37.0); MEAN CORPUSCULAR VOLUME 90.8 FL (81.0-99.0); MEAN PLATELET VOLUME 9.7 FL (7.4-10.4); PLATELET COUNT 51 /CUMM (130-400); RBC DISTRIBUTION WIDTH 17.3 % (11.5-14.5); RED BLOOD CELL CT 2.75 /CUMM (4.20-5.40); WHITE BLOOD CELL COUNT 9.5 /CUMM (4.8-10.8)
[2016-04-11 23:27] VITALS: BP 114/54
--- NOTE | 2016-04-12 04:59 | NUR ---
PT HAS BEEN HAVING DIARRHEA X3 THIS SHIFT, LOMOTIL GIVEN X1 AT 0100. PT REPORTED THAT SHE VOMITED X1 IN THE BATHROOM, BUT SHE FLUSHED IT SO I DID NOT GET TO SEE IT. PT DENIED ANY BLOOD IN HER VOMIT, STATED IT WAS "NORMAL VOMIT". PRN COMPAZINE ADMINISTERED. PT STATES SHE DID NOT HAVE A VERY BIG APPETITE AND FELT VERY NAUSEOUS WHILE TRYING TO EAT DINNER EARLIER AND SHE FEELS SHE WILL NOT BE ABLE TO EAT BREAKFAST. DR LUEVANO NOTIFIED OF THIS.
--- NOTE | 2016-04-12 06:45 | PN- Housestaff ---
Subjective Follow-up For: Hypokalemia/hypomagnesemia Acute diarrhea s/p chemotherapy Anemia T wave inversions without arrythmia CHELY Hypotension Tele-Events Since Last Visit: NSR-ST HR 75-84 with tachycardia to 119 at 6 am. no overnight events. Subjective: Patient seen and examined at bedside this AM. She is resting comfortably in bed. She endorses abdominal cramping/pain and nausea whenever she eats which is limiting her oral intake. She is requesting prochloperazine as well as a less advanced diet (she is amenable to trying a clear liquid diet). She denies chest pain or palpitations. Review of Systems Constitutional: Reports: malaise. Denies: chills, fever. EENTM: Denies: visual changes, nasal congestion. Cardiovascular: Denies: chest pain, palpitations. Respiratory: Denies: cough, sputum production. Gastrointestinal: Reports: abdominal pain, diarrhea, nausea. Denies: constipation, bloody stool, vomiting. Genitourinary: Denies: dysuria, hematuria, hesitation. Musculoskeletal: Denies: back pain. Skin: Denies: rash. Neurological/Psychological: Denies: confusion, headache. Hematologic/Endocrine: Denies: bruising, bleeding. Objective Last 24 Hrs of Vital Signs/I&O Vital Signs Date Time Temp Pulse Resp B/P Pulse O2 O2 Flow FiO2 Ox Delivery Rate 04/12 0808 97.6 74 16 154/74 97 Room Air 04/11 2327 98.0 76 12 114/54 98 Room Air 04/11 1938 Room Air 04/11 1803 98.1 66 18 106/62 98 Room Air 04/11 1648 97.5 79 18 102/51 97 Room Air 04/11 1528 97.2 72 20 98/50 99 Room Air 04/11 1438 96 04/11 1406 98.1 70 20 86/46 96 Room Air 04/11 1246 97.5 84 18 111/52 99 Intake & Output 04/12 1600 04/12 0800 04/12 0000 Intake Total 900 1280 Output Total 2 Balance 898 1280 Intake, Blood 300 Product Intake, IV 800 500 Intake, Oral 100 480 Number 2 2 Bowel Movements Output, 2 Emesis Patient 140 lb Weight Physical Exam General Appearance: Alert, Oriented X3, Cooperative, No Acute Distress Skin: No Rashes, No Significant Lesion, Skin around port clean, dry and without signs of erythema/fluctuance HEENT: Atraumatic, PERRLA, Improvement in dry oral mucosa Neck: Supple, No JVD, No LAD Cardiovascular: Regular Rate, Normal S1, Normal S2, No Murmurs Lungs: Clear to Auscultation, Normal Air Movement Abdomen: Normal Bowel Sounds, Soft, Generalized tenderness to palpation Neurological: Normal Speech, Strength at 5/5 X4 Ext, Normal Tone Extremities: No Clubbing, No Cyanosis Vascular: Pulses Symmetrical Current Medications: Current Medications Sig/Colten Start time Last Medication Dose Route Stop Time Status Admin Acetaminophen/ 1 TAB Q6P PRN 04/12 0745 AC Hydrocodone Bitart PO Aspirin 81 MG DAILY 04/11 1750 AC 04/11 PO 2203 Atorvastatin Calcium 20 MG 1700 04/11 1700 AC 04/11 PO 2227 Diphenoxylate HCl/ 2.5 MG Q6P PRN 04/12 0745 AC Atropine PO Diphenoxylate HCl/ 2.5 MG ONCE ONE 04/12 0015 DC 04/12 Atropine PO 04/12 0016 0058 Diphenoxylate HCl/ 2.5 MG ONCE ONE 04/11 1315 DC 04/11 Atropine PO 04/11 1316 1320 Folic Acid 1 MG DAILY 04/12 1000 AC PO Heparin Sodium 100 UNIT SEE ADMIN CRITERIA.. 04/12 0330 DC (Porcine) IV 04/12 0331 Heparin Sodium 100 UNIT SEE ADMIN CRITERIA.. 04/12 0115 DC (Porcine) IV 04/12 0116 Loperamide HCl 2 MG Q6P PRN 04/12 0845 AC PO Magnesium Chloride 64 MG ONCE ONE 04/12 0445 DC PO 04/12 0446 Magnesium Sulfate 1 GM Q2H 04/11 1415 DC 04/11 Dextrose/Water 100 ML IV 04/11 1814 1455 Melatonin 5 MG AT BEDTIME 04/11 2200 AC 04/11 PO 2203 Multivitamins 1 TAB DAILY 04/12 1000 AC Therapeutic PO Ondansetron HCl 4 MG Q6P PRN 04/12 0745 AC IV Potassium Chloride 60 MEQ ONCE ONE 04/12 0845 DC PO 04/12 0846 Potassium Chloride 20 MEQ ONCE ONE 04/11 1515 DC 04/11 IV 04/11 1516 1527 Potassium Chloride 0 .STK-MED ONE 04/11 1421 DC PO Potassium Chloride 40 MEQ ONCE ONE 04/11 1415 CAN PO 04/11 1416 Potassium Chloride 10 MEQ Q1H 04/11 1415 DC IV 04/11 1516 Potassium Chloride 40 MEQ ONCE ONE 04/11 1415 DC 04/11 PO 04/11 1416 1434 Prochlorperazine 5 MG Q8 PRN 04/11 1830 AC 04/12 PO 0355 Sodium Chloride 2 SPRAY Q4P PRN 04/12 0745 AC AMRIT Sodium Chloride 1,000 ML ONCE ONE 04/12 0330 AC 04/12 IV 04/12 1649 0554 Sodium Chloride 1,000 ML ONCE ONE 04/11 1630 DC 04/11 IV 04/12 0229 1647 Sodium Chloride 500 ML BOLUS ONE 04/11 1600 DC 04/11 IV 04/11 1659 1553 Sodium Chloride 1,000 ML BOLUS ONE 04/11 1415 DC 04/11 IV 04/11 1514 1412 Last 24 Hrs of Lab/Pavel Results Last 24 Hrs of Labs/Mics: Laboratory Tests 04/12/16 0600: Anion Gap 8, Estimated GFR > 60, BUN/Creatinine Ratio 17.8, Magnesium Pending 04/12/16 0230: Troponin I < 0.01 04/11/16 2200: CBC w Diff NO MAN DIFF REQ, RBC 2.75 L, MCV 90.8, MCH 31.0, RDW 17.3 H, MPV 9.7, Gran % 82.7 H, Lymphocytes % 9.3 L, Monocytes % 7.9, Eosinophils % 0, Basophils % 0.1, Absolute Granulocytes 7.8 H, Absolute Lymphocytes 0.9 L, Absolute Monocytes 0.8 H, Absolute Eosinophils 0, Absolute Basophils 0, PUBS MCHC 34.1 04/11/16 1945: Anion Gap 7, Estimated GFR 44 L, BUN/Creatinine Ratio 14.2, Magnesium 1.7, Troponin I < 0.01 04/11/16 1930: Sodium Cancelled, Potassium Cancelled, Chloride Cancelled, Carbon Dioxide Cancelled, Anion Gap Cancelled, BUN Cancelled, Creatinine Cancelled, BUN/ Creatinine Ratio Cancelled, Magnesium Cancelled, CBC w Diff Cancelled, WBC Cancelled, RBC Cancelled, Hgb Cancelled, Hct Cancelled, MCV Cancelled, MCH Cancelled, RDW Cancelled, Plt Count Cancelled, MPV Cancelled, PUBS MCHC Cancelled 04/11/16 1336: Urinalysis LIGHT H, Urine Color YEL, Urine Clarity HAZY H, Urine pH 6.0, Ur Specific Gaylord 1.010, Urine Protein TRACE H, Urine Ketones NEG, Urine Nitrite NEG, Urine Bilirubin NEG, Urine Urobilinogen 0.2, Ur Leukocyte Esterase TRACE H , Ur Microscopic SEDIMENT EXAMINED, Urine RBC >75 H, Urine WBC 5-10 H, Ur Epithelial Cells FEW, Urine Bacteria FEW H, Hyaline Casts RARE H, Urine Hemoglobin LARGE H, Urine Glucose NEG 04/11/16 1330: Anion Gap 8, Estimated GFR 40 L, BUN/Creatinine Ratio 15.4, Glucose 116 H, Calcium 7.6 L, Magnesium 0.7 *L, Total Bilirubin 0.5, AST 19, ALT 34, Alkaline Phosphatase 58, Troponin I < 0.01, Total Protein 4.5 L, Albumin 2.5 L, Globulin 2.0, Albumin/Globulin Ratio 1.3, CBC w Diff MAN DIFF ORDERED, RBC 2.44 L, MCV 92.7, MCH 31.1 H, RDW 19.6 H, MPV 9.5, Gran % 63.4, Lymphocytes % 19.1 L, Monocytes % 17.1 H, Eosinophils % 0.1, Basophils % 0.3, Absolute Granulocytes 4.6, Segmented Neutrophils 56, Band Neutrophils 10 H, Absolute Lymphocytes 1.4, Lymphocytes 22, Monocytes 12 H, Absolute Monocytes 1.2 H, Absolute Eosinophils 0, Absolute Basophils 0, Platelet Estimate DECREASED, Poikilocytosis 1+, Anisocytosis 1+, PUBS MCHC 33.5 Microbiology 04/12 0735 STOOL: Clostridium difficile Toxin A & B - ORD 04/12 0735 STOOL: Stool Culture - ORD 04/11 1650 BLOOD: Blood Culture - RECD 04/11 1625 BLOOD: Blood Culture - RECD 04/11 1336 URINE ROUT: Urine Culture - RES Orders ECHO Findings: CONCLUSIONS Small left ventricular cavity. No obvious regional wall motion abnormalities. Normal left ventricular ejection fraction visually estimated at > 65%. Abnormal relaxation filling pattern of the left ventricle for age (stage 1 diastolic dysfunction). Normal right ventricular size and function. Normal atrial size. Mild mitral regurgitation. Trace aortic regurgitation. Mild tricuspid regurgitation. Mild pulmonary hypertension. Mildly dilated inferior vena cava. Assessment/Plan Assessment: Ms. Goodman is a pleasant 75 year old female with PMH HTN, HLD and right breast cancer s/p partial resection in November of 2015 currently undergoing chemotherapy with Dr. Radha Guzman who was sent in from his office for anemia and electrolyte abnormalities. Patient endorsed a 6 day history of 5-6 episodes of non-bloody diarrhea daily with associated decreased oral intake of food and fluids. She currently endorses generalized weakness, throat pain and diarrhea. In the ED: Vital signs showed T 98.1, HR 84, RR 18, BP 111/52 and O2 saturation of 99% on room air. Labs showed WBC 7.3 with 10 bands, H&H 7.6/22.7, Plt 60, Na 131, K 2.9, Cl 96, HCO3 27, BUN/cre 20/1.3 (baseline cre 1), corrected Ca 8.8, Magnesium 0.7, and troponin <0.01. UA was showed high proteins, trace leukocyte esterase, >75 RBCs, 5-10 WBCs, few epithelial cells and few bacteria. EKG was obtained and showed NSR HR 82, QTC 430, and no ST changes. There were NEW T wave inversions in leads II, aVF, and V3-V6. Patient is admitted to the telemetry floor and the following is the management: 1. Acute diarrhea after chemotherapy * Patient endorses recurrent diarrhea after every round of chemotherapy * Dr. Guzman aware of the admission, will follow up recommendations * Continue lamotil and immodium prn * Stool culture, stool for Cdiff sent, f/u results * Continue clear liquid diet and advance as tolerated * Continue NS at 75 cc/h for now * Guiac all stools 2. Dehydration with CHELY and hypotension * Dehydration likely 2/2 profuse diarrhea without repletion (due to decreased PO intake) * GFR dropped by >25% (baseline GFR of 55, now GFR is 40) * Patient noted to be hypotensive to 70/40 in the oncology office * Continue IVF with NS at 75 cc/h * BP has responded well to fluids, watch BP closely * Hold antihypertensives for now, vital signs Q shift * Orthostatics negative * AM BEP shows normalization of CHELY with BUN/cre of 16/0.9 3. Hypokalemia and hypomagnesemia * Likely secondary to chemotherapy, active diarrhea and poor PO intake * Repeat BEP this AM shows hypokalemia to 3.3, patient given 60 meq Kdur * Mag low this AM to 1.5, 1 gm IV mag given * Follow daily BEP with mag 4. T wave inversions, leads II, aVF, V3-V6 * Continuous telemetry monitoring * Cardiology consult with Dr. Manzanares appreciated * ACS ruled out, EKG abnormalities improving with electrolyte repletion * Prior echocardiogram was on 03/29 and showed normal EF to >65% and stage 1 diastolic dysfunction without wall motion abnormalities * No arrythmias noted over night, follow cardio recs about discontinuation of tele 4. Normocytic anemia and thrombocytopenia * Likely 2/2 current chemotherapy * Patient s/p 1 U PRBC yesterday * Monitor CBC daily, Hgb today 8.5 * Guiac all stools * Hold pharm VTE prophylaxis 5. Asymptomatic bateriuria * UA shows high proteins, trace leukocyte esterase, >75 RBCs, 5-10 WBCs, few epithelial cells and few bacteria. * Patient currently asymptomatic without dysuria, foul-smelling urine etc. * Urine culture and blood cultures x 2 sent, f/u results * Monitor for fevers, consider starting antibiotics she spikes FULL CODE DVT Prophylaxis: ALPS Mild pain pathway Problem List: 1. Hypomagnesemia 2. Hypokalemia 3. Symptomatic anemia 4. Hypotension 5. Hyponatremia 6. Diarrhea 7. Abnormal EKG 8. Breast cancer Pain Ratin Pain Location: Generalized abdomen Pain Goal: Pain 4 or less Pain Plan: 1 tab Vicodin Q6 PRN for abdominal pain Tomorrow's Labs & Rationales: CBC (monitor anemia), BEP (monitor hypokalemia, hyponatremia), mag (monitor hypomagnesemia)
[2016-04-12 08:08] VITALS: BP 154/74
--- NOTE | 2016-04-12 08:27 | Cons- Oncology ---
General Information and HPI Consulting Request Date of Consult: 04/12/16 Requested By: KLEBER REYNOSO MD Reason for Consult: breast cancer, nausea/vomiting, dehydration Source of Information: patient Exam Limitations: no limitations History of Present Illness: Ms. Goodman is a 75-year-old female with stage IIA breast cancer (ER/AL-, HER2) status lumpectomy and currently receiving TCHP therapy who presented to the ED after being seen in the clinic for dehydration. She is currently on cycle 5 day 8 of her therapy. She starting feeling sick on Friday with nausea, vomiting, diarrhea, and fatigue. She was noted to be hypotensive in clinic with BP of 74/ 58. She reported lightheadedness. She denies any fever or chills. She has no shortness of breath or chest pain. In the ED, she was noted to have improved BP. Her hemoglobin was 7.6. She was severe hypokalemic with potassium of 2.9. She was given IVF and blood transfusion. She continues to have nausea and diarrhea today. She has no appetite. She has been able to eat much. Allergies/Medications Allergies: Coded Allergies: NO KNOWN ALLERGIES (11/30/15) Home Med List: Aspirin (Aspirin*) 81 MG TAB.CHEW 1 TAB PO DAILY HEART HEALTH (Reported) Atenolol 25 MG TABLET 1 TAB PO DAILY HEART (Reported) Folic Acid 1 MG TABLET 1 TAB PO DAILY SUPPLEMENT (Reported) Hydrochlorothiazide 25 MG TABLET 1 TAB PO DAILY WATER PILL (Reported) Lisinopril 20 MG TABLET 1 TAB PO DAILY HEART (Reported) Multivitamin (Daily Multiple Vitamin) 1 EACH TABLET 1 TAB PO DAILY SUPPLEMENT (Reported) Pyridoxine HCl 500 MG TABLET 1 TAB PO DAILY SUPPLEMENT (Reported) Simvastatin (Simvastatin*) 40 MG TABLET 1 TAB PO QPM CHOLESTEROL (Reported) Current Medications: Current Medications Sig/Colten Start time Last Medication Dose Route Stop Time Status Admin Acetaminophen/ 1 TAB Q6P PRN 04/12 0745 AC Hydrocodone Bitart PO Aspirin 81 MG DAILY 04/11 1750 AC 04/11 PO 2203 Atorvastatin Calcium 20 MG 1700 04/11 1700 AC 04/11 PO 2227 Diphenoxylate HCl/ 2.5 MG Q6P PRN 04/12 0745 AC Atropine PO Diphenoxylate HCl/ 2.5 MG ONCE ONE 04/12 0015 DC 04/12 Atropine PO 04/12 0016 0058 Diphenoxylate HCl/ 2.5 MG ONCE ONE 04/11 1315 DC 04/11 Atropine PO 04/11 1316 1320 Folic Acid 1 MG DAILY 04/12 1000 AC PO Heparin Sodium 100 UNIT SEE ADMIN CRITERIA.. 04/12 0330 DC (Porcine) IV 04/12 0331 Heparin Sodium 100 UNIT SEE ADMIN CRITERIA.. 04/12 0115 DC (Porcine) IV 04/12 0116 Magnesium Chloride 64 MG ONCE ONE 04/12 0445 DC PO 04/12 0446 Magnesium Sulfate 1 GM Q2H 04/11 1415 DC 04/11 Dextrose/Water 100 ML IV 04/11 1814 1455 Melatonin 5 MG AT BEDTIME 04/11 2200 AC 04/11 PO 2203 Multivitamins 1 TAB DAILY 04/12 1000 AC Therapeutic PO Ondansetron HCl 4 MG Q6P PRN 04/12 0745 AC IV Potassium Chloride 20 MEQ ONCE ONE 04/11 1515 DC 04/11 IV 04/11 1516 1527 Potassium Chloride 0 .STK-MED ONE 04/11 1421 DC PO Potassium Chloride 40 MEQ ONCE ONE 04/11 1415 CAN PO 04/11 1416 Potassium Chloride 10 MEQ Q1H 04/11 1415 DC IV 04/11 1516 Potassium Chloride 40 MEQ ONCE ONE 04/11 1415 DC 03/ PO 04/11 1416 1434 Prochlorperazine 5 MG Q8 PRN 04/11 1830 AC 04/12 PO 0355 Sodium Chloride 2 SPRAY Q4P PRN 04/12 0745 AC AMRIT Sodium Chloride 1,000 ML ONCE ONE 04/12 0330 AC 04/12 IV 04/12 1649 0554 Sodium Chloride 1,000 ML ONCE ONE 04/11 1630 DC / IV 04/12 0229 1647 Sodium Chloride 500 ML BOLUS ONE 04/11 1600 DC 04/11 IV 04/11 1659 1553 Sodium Chloride 1,000 ML BOLUS ONE 04/11 1415 DC 04/11 IV 04/11 1514 1412 Review of Systems Review of Systems Constitutional: Reports: malaise, weakness. Denies: chills, fever. Cardiovascular: Denies: chest pain. Respiratory: Denies: short of breath. GI: Reports: abdominal pain, bloating, diarrhea, nausea. Genitourinary: Denies: dysuria. Musculoskeletal: Denies: back pain. Neurological/Psychological: Denies: anxiety, ataxia. Immunologic/Allergic: Denies: lymphadenopathy. All Other Systems: Reviewed and Negative Past History Travel History Traveled to [place] past 21 day No Medical History Blood Transfusion Hx: No Cardiovascular: hypertension, hyperlipidemia Musculoskeletal: ARTHRITIS Cancer(s): breast cancer Surgical History Surgical History: masectomy Psychosocial History Where Do You Live? Home Who Do You Live With? spouse Primary Language: Tanzanian Smoking Status: Former Smoker ETOH Use: denies use Illicit Drug Use: denies illicit drug use Functional Ability ADLs Independent: dressing, eating, toileting, bathing. Ambulation: independent IADLs Independent: shopping, housework, finances, food prep, telephone, transportation , medication admin. Exam & Diagnostic Data Vital Signs and I&O Vital Signs Date Time Temp Pulse Resp B/P Pulse O2 O2 Flow FiO2 Ox Delivery Rate 04/11 2327 98.0 76 12 114/54 98 Room Air 04/11 1938 Room Air 04/11 1803 98.1 66 18 106/62 98 Room Air 04/11 1648 97.5 79 18 102/51 97 Room Air 04/11 1528 97.2 72 20 98/50 99 Room Air 04/11 1438 96 04/11 1406 98.1 70 20 86/46 96 Room Air 04/11 1246 97.5 84 18 111/52 99 Intake & Output 04/12 1600 04/12 0800 04/12 0000 Intake Total 900 1280 Output Total 2 Balance 898 1280 Intake, Blood 300 Product Intake, IV 800 500 Intake, Oral 100 480 Number 2 2 Bowel Movements Output, 2 Emesis Patient 63.503 kg Weight Physical Exam General Appearance: well developed/nourished, no apparent distress, comfortable Head: atraumatic, darken area under her eyes Eyes: Bilateral: PERRL. Respiratory: normal breath sounds, chest non-tender, no respiratory distress Cardiovascular: regular rate/rhythm Gastrointestinal: normal bowel sounds, soft, tenderness (diffusely) Extremities: no edema Neurologic/Psych: awake, alert, oriented x 3 Lymphatic: no anterior cervical arslan Last 48 Hours of Lab Results: Laboratory Tests 04/12 04/12 04/11 04/11 0600 0230 2200 1945 Chemistry Sodium (137 - 145 mmol/L) 136 L 133 L Potassium (3.5 - 5.1 mmol/L) 3.3 L 3.8 Chloride (98 - 107 mmol/L) 104 101 Carbon Dioxide (22 - 30 mmol/L) 24 25 Anion Gap (5 - 16) 8 7 BUN (7 - 17 mg/dL) 16 17 Creatinine (0.5 - 1.0 mg/dL) 0.9 1.2 H Estimated GFR (>60 ml/min) > 60 44 L BUN/Creatinine Ratio (7 - 25 %) 17.8 14.2 Magnesium (1.6 - 2.3 mg/dL) 1.7 Troponin I (< 0.11 ng/ml) < 0.01 < 0.01 Hematology CBC w Diff NO MAN DIFF REQ WBC (4.8 - 10.8 /CUMM) 9.5 RBC (4.20 - 5.40 /CUMM) 2.75 L Hgb (12.0 - 16.0 G/DL) 8.5 L Hct (37 - 47 %) 25.0 L MCV (81.0 - 99.0 FL) 90.8 MCH (27.0 - 31.0 PG) 31.0 RDW (11.5 - 14.5 %) 17.3 H Plt Count (130 - 400 /CUMM) 51 L MPV (7.4 - 10.4 FL) 9.7 Gran % (42.2 - 75.2 %) 82.7 H Lymphocytes % (20.5 - 51.1 %) 9.3 L Monocytes % (1.7 - 9.3 %) 7.9 Eosinophils % (0 - 5 %) 0 Basophils % (0.0 - 2.0 %) 0.1 Absolute Granulocytes (1.4 - 6.5 /CUMM) 7.8 H Absolute Lymphocytes (1.2 - 3.4 /CUMM) 0.9 L Absolute Monocytes (0.10 - 0.60 /CUMM) 0.8 H Absolute Eosinophils (0.0 - 0.7 /CUMM) 0 Absolute Basophils (0.0 - 0.2 /CUMM) 0 PUBS MCHC (33.0 - 37.0 G/DL) 34.1 04/11 04/11 1930 1336 Chemistry Sodium Cancelled Potassium Cancelled Chloride Cancelled Carbon Dioxide Cancelled Anion Gap Cancelled BUN Cancelled Creatinine Cancelled BUN/Creatinine Ratio Cancelled Magnesium Cancelled Hematology CBC w Diff Cancelled WBC Cancelled RBC Cancelled Hgb Cancelled Hct Cancelled MCV Cancelled MCH Cancelled RDW Cancelled Plt Count Cancelled MPV Cancelled PUBS MCHC Cancelled Urines Urinalysis LIGHT H Urine Color (YEL,AMB,STR) YEL Urine Clarity (CLEAR) HAZY H Urine pH (5.0 - 8.0) 6.0 Ur Specific [place] (1.001 - 1.035) 1.010 Urine Protein (NEG,<30 MG/DL) TRACE H Urine Ketones (NEG) NEG Urine Nitrite (NEG) NEG Urine Bilirubin (NEG) NEG Urine Urobilinogen (0.1 - 1.0 EU/dl) 0.2 Ur Leukocyte Esterase (NEG) TRACE H Ur Microscopic SEDIMENT EXAMINED Urine RBC (0 - 5 /HPF) >75 H Urine WBC (0 - 2 /HPF) 5-10 H Ur Epithelial Cells (NONE,FEW) FEW Urine Bacteria (NEG/NONE) FEW H Hyaline Casts (0/LPF) RARE H Urine Hemoglobin (NEG) LARGE H Urine Glucose (N MG/DL) NEG 04/11 1330 Chemistry Sodium (137 - 145 mmol/L) 131 L Potassium (3.5 - 5.1 mmol/L) 2.9 *L Chloride (98 - 107 mmol/L) 96 L Carbon Dioxide (22 - 30 mmol/L) 27 Anion Gap (5 - 16) 8 BUN (7 - 17 mg/dL) 20 H Creatinine (0.5 - 1.0 mg/dL) 1.3 H Estimated GFR (>60 ml/min) 40 L BUN/Creatinine Ratio (7 - 25 %) 15.4 Glucose (65 - 99 mg/dL) 116 H Calcium (8.4 - 10.2 mg/dL) 7.6 L Magnesium (1.6 - 2.3 mg/dL) 0.7 *L Total Bilirubin (0.2 - 1.3 mg/dL) 0.5 AST (14 - 36 U/L) 19 ALT (9 - 52 U/L) 34 Alkaline Phosphatase (<127 U/L) 58 Troponin I (< 0.11 ng/ml) < 0.01 Total Protein (6.3 - 8.2 g/dL) 4.5 L Albumin (3.5 - 5.0 g/dL) 2.5 L Globulin (1.9 - 4.2 gm/dL) 2.0 Albumin/Globulin Ratio (1.1 - 2.2 %) 1.3 Hematology CBC w Diff MAN DIFF ORDERED WBC (4.8 - 10.8 /CUMM) 7.3 RBC (4.20 - 5.40 /CUMM) 2.44 L Hgb (12.0 - 16.0 G/DL) 7.6 L Hct (37 - 47 %) 22.7 L MCV (81.0 - 99.0 FL) 92.7 MCH (27.0 - 31.0 PG) 31.1 H RDW (11.5 - 14.5 %) 19.6 H Plt Count (130 - 400 /CUMM) 60 L MPV (7.4 - 10.4 FL) 9.5 Gran % (42.2 - 75.2 %) 63.4 Lymphocytes % (20.5 - 51.1 %) 19.1 L Monocytes % (1.7 - 9.3 %) 17.1 H Eosinophils % (0 - 5 %) 0.1 Basophils % (0.0 - 2.0 %) 0.3 Absolute Granulocytes (1.4 - 6.5 /CUMM) 4.6 Segmented Neutrophils (42.2 - 75.2 %) 56 Band Neutrophils (0.0 - 5.0 %) 10 H Absolute Lymphocytes (1.2 - 3.4 /CUMM) 1.4 Lymphocytes (20.5 - 51.1 %) 22 Monocytes (1.7 - 9.3 %) 12 H Absolute Monocytes (0.10 - 0.60 /CUMM) 1.2 H Absolute Eosinophils (0.0 - 0.7 /CUMM) 0 Absolute Basophils (0.0 - 0.2 /CUMM) 0 Platelet Estimate (ADEQUATE) DECREASED Poikilocytosis 1+ Anisocytosis 1+ PUBS MCHC (33.0 - 37.0 G/DL) 33.5 Assessment/Plan Assessment: Ms. Goodman is a 75-year-old female with stage IIA breast cancer status post partial mastectomy now on adjuvant TCHP therapy who presents with diarrhea, dehydration, and electrolyte abnormalities. She is improved with IVF. She continues to have diarrhea with cramping abdominal pain. She continues to have nausea with emesis. She has decreased oral intake. She has no fever. These symptoms are likely related to chemotherapy side effects. Given the persistent diarrhea, she should have the stool evaluated for infection including c. difficile. For her nausea, she can use Compazine and Zofran. Recommendations: 1. Check stool culture 2. Check C. diff 3. Compazine and Zofran prn nasuea 4. Lomotil and Imodium prn for diarrhea 5. Continue IVF 6. Clear liquid diet for now and advance as tolerated by patient 7. Keep hemoglobin >8 Problem List: 1. Diarrhea 2. Hypotension 3. Hypokalemia 4. Hypomagnesemia 5. Symptomatic anemia Other Findings/Comments: Please call [phone] Consult Acknowledgment - Thank you for your consult request.
--- NOTE | 2016-04-12 10:35 | PN- Cardiology ---
Subjective Subjective: The patient is doing well at this time. She is feeling better. She still has some mild diarrhea and is still having some nausea. She has been transfused and magnesium and potassium repleted but they are still slightly low. Her EKG shows significant improvement in the ST-T waves. Cardiac enzymes are negative. There have been no arrhythmias on the monitor. Objective Vital Signs and I&Os Vital Signs Date Time Temp Pulse Resp B/P Pulse O2 O2 Flow FiO2 Ox Delivery Rate 04/12 0808 97.6 74 16 154/74 97 Room Air 04/11 2327 98.0 76 12 114/54 98 Room Air 04/11 1938 Room Air 04/11 1803 98.1 66 18 106/62 98 Room Air / 1648 97.5 79 18 102/51 97 Room Air 04/11 1528 97.2 72 20 98/50 99 Room Air 04/11 1438 96 / 1406 98.1 70 20 86/46 96 Room Air 04/11 1246 97.5 84 18 111/52 99 Intake & Output 04/12 1600 04/12 0800 04/12 0000 04/11 1600 04/11 0800 04/11 0000 Intake Total 900 1280 200 Output Total 2 60 Balance 898 1280 140 Intake, Blood 300 Product Intake, IV 800 500 Intake, Oral 100 480 200 Number 2 2 1 Bowel Movements Output, 2 Emesis Output, Urine 60 Patient 140 lb 140 lb Weight Physical Exam: She is in no distress HEENT exam normal Chest clear Heart regular rhythm no murmurs Extremities no edema Current Medications: Current Medications Sig/Colten Start time Last Medication Dose Route Stop Time Status Admin Acetaminophen/ 1 TAB Q6P PRN 04/12 0745 AC Hydrocodone Bitart PO Aspirin 81 MG DAILY 04/11 1750 AC 04/12 PO 1002 Atorvastatin Calcium 20 MG 1700 04/11 1700 AC 04/11 PO 2227 Diphenoxylate HCl/ 2.5 MG Q6P PRN 04/12 0745 AC 04/12 Atropine PO 0940 Diphenoxylate HCl/ 2.5 MG ONCE ONE 04/12 0015 DC 04/12 Atropine PO 04/12 0016 0058 Diphenoxylate HCl/ 2.5 MG ONCE ONE 04/11 1315 DC 04/11 Atropine PO 04/11 1316 1320 Folic Acid 1 MG DAILY 04/12 1000 AC 04/12 PO 1002 Heparin Sodium 100 UNIT SEE ADMIN CRITERIA.. 04/12 0330 DC (Porcine) IV 04/12 0331 Heparin Sodium 100 UNIT SEE ADMIN CRITERIA.. 04/12 0115 DC (Porcine) IV 04/12 0116 Loperamide HCl 2 MG Q6P PRN 04/12 0845 AC PO Magnesium Chloride 64 MG ONCE ONE 04/12 0445 DC 04/12 PO 04/12 0446 0943 Magnesium Sulfate 1 GM ONCE ONE 04/12 0930 AC Dextrose/Water 100 ML IV 04/12 1329 Magnesium Sulfate 1 GM Q2H 04/11 1415 DC 04/11 Dextrose/Water 100 ML IV 04/11 1814 1455 Melatonin 5 MG AT BEDTIME 04/11 2200 AC 04/11 PO 2203 Multivitamins 1 TAB DAILY 04/12 1000 AC 04/12 Therapeutic PO 1002 Ondansetron HCl 4 MG Q6P PRN 04/12 0745 AC 04/12 IV 0941 Potassium Chloride 60 MEQ ONCE ONE 04/12 1000 DC 04/12 PO 04/12 1001 0959 Potassium Chloride 60 MEQ ONCE ONE 04/12 0845 CAN PO 04/12 0846 Potassium Chloride 20 MEQ ONCE ONE 04/11 1515 DC 03/ IV 04/11 1516 1527 Potassium Chloride 0 .STK-MED ONE 04/11 1421 DC PO Potassium Chloride 40 MEQ ONCE ONE 04/11 1415 CAN PO 04/11 1416 Potassium Chloride 10 MEQ Q1H 04/11 1415 DC IV 04/11 1516 Potassium Chloride 40 MEQ ONCE ONE 04/11 1415 DC 03/ PO 03/02 1416 1434 Prochlorperazine 5 MG Q8 PRN 04/11 1830 AC 04/12 PO 0355 Sodium Chloride 2 SPRAY Q4P PRN 04/12 0745 AC AMRIT Sodium Chloride 1,000 ML ONCE ONE 04/12 0330 AC 04/12 IV 04/12 1649 0554 Sodium Chloride 1,000 ML ONCE ONE 04/11 1630 DC / IV 04/12 0229 1647 Sodium Chloride 500 ML BOLUS ONE 04/11 1600 DC 03/02 IV 04/11 1659 1553 Sodium Chloride 1,000 ML BOLUS ONE 04/11 1415 DC / IV 04/11 1514 1412 Results Last 48 Hrs of Labs/Mics: Laboratory Tests 04/12/16 0600: Anion Gap 8, Estimated GFR > 60, BUN/Creatinine Ratio 17.8, Magnesium 1.5 L 04/12/16 0230: Troponin I < 0.01 04/11/160: CBC w Diff NO MAN DIFF REQ, RBC 2.75 L, MCV 90.8, MCH 31.0, RDW 17.3 H, MPV 9.7, Gran % 82.7 H, Lymphocytes % 9.3 L, Monocytes % 7.9, Eosinophils % 0, Basophils % 0.1, Absolute Granulocytes 7.8 H, Absolute Lymphocytes 0.9 L, Absolute Monocytes 0.8 H, Absolute Eosinophils 0, Absolute Basophils 0, PUBS MCHC 34.1 04/11/16 194: Anion Gap 7, Estimated GFR 44 L, BUN/Creatinine Ratio 14.2, Magnesium 1.7, Troponin I < 0.01 04/11/16 193: Sodium Cancelled, Potassium Cancelled, Chloride Cancelled, Carbon Dioxide Cancelled, Anion Gap Cancelled, BUN Cancelled, Creatinine Cancelled, BUN/ Creatinine Ratio Cancelled, Magnesium Cancelled, CBC w Diff Cancelled, WBC Cancelled, RBC Cancelled, Hgb Cancelled, Hct Cancelled, MCV Cancelled, MCH Cancelled, RDW Cancelled, Plt Count Cancelled, MPV Cancelled, PUBS MCHC Cancelled 04/11/16 1336: Urinalysis LIGHT H, Urine Color YEL, Urine Clarity HAZY H, Urine pH 6.0, Ur Specific [place] 1.010, Urine Protein TRACE H, Urine Ketones NEG, Urine Nitrite NEG, Urine Bilirubin NEG, Urine Urobilinogen 0.2, Ur Leukocyte Esterase TRACE H , Ur Microscopic SEDIMENT EXAMINED, Urine RBC >75 H, Urine WBC 5-10 H, Ur Epithelial Cells FEW, Urine Bacteria FEW H, Hyaline Casts RARE H, Urine Hemoglobin LARGE H, Urine Glucose NEG 04/11/16 1330: Anion Gap 8, Estimated GFR 40 L, BUN/Creatinine Ratio 15.4, Glucose 116 H, Calcium 7.6 L, Magnesium 0.7 *L, Total Bilirubin 0.5, AST 19, ALT 34, Alkaline Phosphatase 58, Troponin I < 0.01, Total Protein 4.5 L, Albumin 2.5 L, Globulin 2.0, Albumin/Globulin Ratio 1.3, CBC w Diff MAN DIFF ORDERED, RBC 2.44 L, MCV 92.7, MCH 31.1 H, RDW 19.6 H, MPV 9.5, Gran % 63.4, Lymphocytes % 19.1 L, Monocytes % 17.1 H, Eosinophils % 0.1, Basophils % 0.3, Absolute Granulocytes 4.6, Segmented Neutrophils 56, Band Neutrophils 10 H, Absolute Lymphocytes 1.4, Lymphocytes 22, Monocytes 12 H, Absolute Monocytes 1.2 H, Absolute Eosinophils 0, Absolute Basophils 0, Platelet Estimate DECREASED, Poikilocytosis 1+, Anisocytosis 1+, PUBS MCHC 33.5 Recent Imaging Studies: This morning's EKG shows just very minor T-wave changes, much improved from admission. Assessment/Plan Assessment/Plan The patient is doing better. She still is receiving some electrolyte repletion. She's not had any arrhythmias on the monitor and her EKG is improved. I think telemetry can be discontinued at this time. Continue telemetry? No
--- NOTE | 2016-04-12 13:00 | PN- Att Addend ---
Attending Addendum Attending Brief Note Patient resting comfortably in bed. Earlier again she had abdominal discomfort and a lot of nausea, improved with medications. Her vital signs are stable she' s afebrile and appreciated burnisher and bumper Dr. Manzanares's input and recommendations for her cardiac enzymes troponins are negative and her EKG looks better today are the changes might be related to the electrolyte imbalance. We'll continue replacing the same electrolytes [place] after the transfusion Current Medications Sig/Colten Start time Last Medication Dose Route Stop Time Status Admin Acetaminophen/ 1 TAB Q6P PRN 04/12 0745 AC Hydrocodone Bitart PO Aspirin 81 MG DAILY 04/11 1750 AC 04/12 PO 1002 Atorvastatin Calcium 20 MG 1700 04/11 1700 AC 04/11 PO 2227 Diphenoxylate HCl/ 2.5 MG Q6P PRN 04/12 0745 AC 04/12 Atropine PO 0940 Diphenoxylate HCl/ 2.5 MG ONCE ONE 04/12 0015 DC 04/12 Atropine PO 04/12 0016 0058 Diphenoxylate HCl/ 2.5 MG ONCE ONE 04/11 1315 DC 04/11 Atropine PO 04/11 1316 1320 Folic Acid 1 MG DAILY 04/12 1000 AC 04/12 PO 1002 Heparin Sodium 100 UNIT SEE ADMIN CRITERIA.. 04/12 0330 DC (Porcine) IV 04/12 0331 Heparin Sodium 100 UNIT SEE ADMIN CRITERIA.. 04/12 0115 DC (Porcine) IV 04/12 0116 Loperamide HCl 2 MG Q6P PRN 04/12 0845 AC PO Magnesium Chloride 64 MG ONCE ONE 04/12 0445 DC 04/12 PO 04/12 0446 0943 Magnesium Sulfate 1 GM ONCE ONE 04/12 0930 AC 04/12 Dextrose/Water 100 ML IV 04/12 1329 1049 Magnesium Sulfate 1 GM Q2H 04/11 1415 DC 04/11 Dextrose/Water 100 ML IV 04/11 1814 1455 Melatonin 5 MG AT BEDTIME 04/11 2200 AC 04/11 PO 2203 Multivitamins 1 TAB DAILY 04/12 1000 AC 04/12 Therapeutic PO 1002 Ondansetron HCl 4 MG Q6P PRN 04/12 0745 AC 04/12 IV 0941 Potassium Chloride 20 MEQ Q1H 04/12 1115 CAN IV 04/12 1216 Potassium Chloride 10 MEQ Q1H 04/12 1115 AC IV 04/12 1316 Potassium Chloride 60 MEQ ONCE ONE 04/12 1000 DC 04/12 PO 04/12 1001 0959 Potassium Chloride 60 MEQ ONCE ONE 04/12 0845 CAN PO 04/12 0846 Potassium Chloride 20 MEQ ONCE ONE 04/11 1515 DC / IV 04/11 1516 1527 Potassium Chloride 0 .STK-MED ONE 04/11 1421 DC PO Potassium Chloride 40 MEQ ONCE ONE 04/11 1415 CAN PO 04/11 1416 Potassium Chloride 10 MEQ Q1H 04/11 1415 DC IV 04/11 1516 Potassium Chloride 40 MEQ ONCE ONE 04/11 1415 DC / PO 04/11 1416 1434 Prochlorperazine 5 MG Q8 PRN 04/11 1830 AC 04/12 PO 0355 Sodium Chloride 2 SPRAY Q4P PRN 04/12 0745 AC AMRIT Sodium Chloride 1,000 ML ONCE ONE 04/12 0330 AC 04/12 IV 04/12 1649 0554 Sodium Chloride 1,000 ML ONCE ONE 04/11 1630 DC 04/11 IV 04/12 0229 1647 Sodium Chloride 500 ML BOLUS ONE 04/11 1600 DC 03/ IV 04/11 1659 1553 Sodium Chloride 1,000 ML BOLUS ONE 04/11 1415 DC / IV 04/11 1514 1412 Laboratory Tests 04/12/16 0600: Anion Gap 8, Estimated GFR > 60, BUN/Creatinine Ratio 17.8, Magnesium 1.5 L 04/12/16 0230: Troponin I < 0.01 04/11/16 2200: CBC w Diff NO MAN DIFF REQ, RBC 2.75 L, MCV 90.8, MCH 31.0, RDW 17.3 H, MPV 9.7, Gran % 82.7 H, Lymphocytes % 9.3 L, Monocytes % 7.9, Eosinophils % 0, Basophils % 0.1, Absolute Granulocytes 7.8 H, Absolute Lymphocytes 0.9 L, Absolute Monocytes 0.8 H, Absolute Eosinophils 0, Absolute Basophils 0, PUBS MCHC 34.1 04/11/16 1945: Anion Gap 7, Estimated GFR 44 L, BUN/Creatinine Ratio 14.2, Magnesium 1.7, Troponin I < 0.01 04/11/16 1930: Sodium Cancelled, Potassium Cancelled, Chloride Cancelled, Carbon Dioxide Cancelled, Anion Gap Cancelled, BUN Cancelled, Creatinine Cancelled, BUN/ Creatinine Ratio Cancelled, Magnesium Cancelled, CBC w Diff Cancelled, WBC Cancelled, RBC Cancelled, Hgb Cancelled, Hct Cancelled, MCV Cancelled, MCH Cancelled, RDW Cancelled, Plt Count Cancelled, MPV Cancelled, PUBS MCHC Cancelled 04/11/16 1336: Urinalysis LIGHT H, Urine Color YEL, Urine Clarity HAZY H, Urine pH 6.0, Ur Specific [place] 1.010, Urine Protein TRACE H, Urine Ketones NEG, Urine Nitrite NEG, Urine Bilirubin NEG, Urine Urobilinogen 0.2, Ur Leukocyte Esterase TRACE H , Ur Microscopic SEDIMENT EXAMINED, Urine RBC >75 H, Urine WBC 5-10 H, Ur Epithelial Cells FEW, Urine Bacteria FEW H, Hyaline Casts RARE H, Urine Hemoglobin LARGE H, Urine Glucose NEG 04/11/16 1330: Anion Gap 8, Estimated GFR 40 L, BUN/Creatinine Ratio 15.4, Glucose 116 H, Calcium 7.6 L, Magnesium 0.7 *L, Total Bilirubin 0.5, AST 19, ALT 34, Alkaline Phosphatase 58, Troponin I < 0.01, Total Protein 4.5 L, Albumin 2.5 L, Globulin 2.0, Albumin/Globulin Ratio 1.3, CBC w Diff MAN DIFF ORDERED, RBC 2.44 L, MCV 92.7, MCH 31.1 H, RDW 19.6 H, MPV 9.5, Gran % 63.4, Lymphocytes % 19.1 L, Monocytes % 17.1 H, Eosinophils % 0.1, Basophils % 0.3, Absolute Granulocytes 4.6, Segmented Neutrophils 56, Band Neutrophils 10 H, Absolute Lymphocytes 1.4, Lymphocytes 22, Monocytes 12 H, Absolute Monocytes 1.2 H, Absolute Eosinophils 0, Absolute Basophils 0, Platelet Estimate DECREASED, Poikilocytosis 1+, Anisocytosis 1+, PUBS MCHC 33.5 Microbiology Date/Time Procedure - Status Source Growth 04/12 924 Clostridium difficile Toxin A & B - RECD STOOL 04/12 924 Stool Culture - RECD STOOL 04/11 1650 Blood Culture - RES BLOOD 04/11 1625 Blood Culture - RES BLOOD 04/11 1336 Urine Culture - RES URINE ROUT Vital Signs Date Time Temp Pulse Resp B/P Pulse O2 O2 Flow FiO2 Ox Delivery Rate 04/12 0808 97.6 74 16 154/74 97 Room Air
[2016-04-12 16:10] VITALS: BP 120/76
[2016-04-12 23:00] VITALS: BP 122/76
[2016-04-13 07:39] VITALS: BP 150/70
--- NOTE | 2016-04-13 08:13 | PN- Housestaff ---
Subjective Follow-up For: diarrhea Subjective: Pt seen this morning, she reports feeling well without nausea, abdominal pain or diarrhea. Agreed to advance diet to full liquid for lunch and if she tolerates it well, then advance to regular diet at dinner. 04/12: Hypokalemia to 3.3, patient given 60 meq Kdur, improved to 4.2, then down again to 3.4 on 04/13, ordered 2 X 40 meq kdur 04/12: Mag low to 1.5, IV mag given, improved to 2.1. If mag low tomorrow, would give slowmag given diarrhea. na 134. Review of Systems Constitutional: Denies: chills, fever. EENTM: Denies: visual changes. Cardiovascular: Denies: chest pain. Respiratory: Denies: cough, short of breath. Gastrointestinal: Denies: abdominal pain, diarrhea, nausea. Objective Last 24 Hrs of Vital Signs/I&O Vital Signs Date Time Temp Pulse Resp B/P Pulse O2 O2 Flow FiO2 Ox Delivery Rate 04/13 0739 97.6 96 18 150/70 98 Room Air 04/13 0000 98 04/12 2300 97.6 89 18 122/76 98 Room Air 04/12 1610 97.6 90 16 120/76 95 Room Air Intake & Output 04/13 1600 04/13 0800 04/13 0000 Intake Total 590 345 Output Total Balance 590 345 Intake, IV 350 225 Intake, Oral 240 120 Patient 63.503 kg Weight Physical Exam General Appearance: Alert, Oriented X3, Cooperative, No Acute Distress Skin: No Significant Lesion HEENT: Atraumatic Cardiovascular: Regular Rate, Normal S1, Normal S2, No Murmurs, Gallops, Rubs Lungs: Clear to Auscultation, Normal Air Movement Abdomen: Normal Bowel Sounds, Soft, No Tenderness Neurological: Normal Speech Current Medications: Current Medications Sig/Colten Start time Last Medication Dose Route Stop Time Status Admin Acetaminophen/ 1 TAB Q6P PRN 04/12 0745 AC Hydrocodone Bitart PO Aspirin 81 MG DAILY 04/11 1750 AC 04/13 PO 0907 Atorvastatin Calcium 20 MG 1700 04/11 1700 AC 04/11 PO 2227 Diphenoxylate HCl/ 2.5 MG Q6P PRN 04/12 0745 AC 04/12 Atropine PO 1828 Folic Acid 1 MG DAILY 04/12 1000 AC 04/13 PO 0907 Loperamide HCl 2 MG Q6P PRN 04/12 0845 AC 04/13 PO 1016 Magnesium Sulfate 1 GM ONCE ONE 04/13 0600 DC 04/13 N/A 1 UNIT IV 04/13 0759 0608 Magnesium Sulfate 1 GM ONCE ONE 04/13 0400 DC 04/13 N/A 1 UNIT IV 04/13 0559 0355 Magnesium Sulfate 1 GM ONCE ONE 04/12 0930 DC 04/12 Dextrose/Water 100 ML IV 04/12 1329 1049 Melatonin 5 MG AT BEDTIME 04/11 2200 AC 04/12 PO 2319 Multivitamins 1 TAB DAILY 04/12 1000 AC 04/13 Therapeutic PO 0907 Ondansetron HCl 4 MG Q6P PRN 04/12 0745 AC 04/13 IV 1015 Potassium Chloride 20 MEQ Q1H 04/12 1115 CAN IV 04/12 1216 Potassium Chloride 10 MEQ Q1H 04/12 1115 DC 04/12 IV 04/12 1316 1716 Prochlorperazine 5 MG Q8 PRN 04/11 1830 AC 04/12 PO 1532 Sodium Chloride 2 SPRAY Q4P PRN 04/12 0745 AC AMRIT Sodium Chloride 1,000 ML ONCE ONE 04/12 0330 DC 04/12 IV 04/12 1649 0554 Last 24 Hrs of Lab/Pavel Results Last 24 Hrs of Labs/Mics: Laboratory Tests 04/13/16 0955: Sodium Pending, Potassium Pending, Chloride Pending, Carbon Dioxide Pending, Anion Gap Pending, BUN Pending, Creatinine Pending, BUN/Creatinine Ratio Pending , Magnesium Pending, CBC w Diff Pending, WBC Pending, RBC Pending, Hgb Pending, Hct Pending, MCV Pending, MCH Pending, RDW Pending, Plt Count Pending, MPV Pending, PUBS MCHC Pending 04/12/162012: Anion Gap 8, Estimated GFR > 60, BUN/Creatinine Ratio 20.0, Magnesium 1.5 L Assessment/Plan Assessment: Ms. Goodman is a pleasant 75 year old female with PMH HTN, HLD and right breast cancer s/p partial resection in November of 2015 currently undergoing chemotherapy with Dr. Radha Guzman who was sent in from his office for anemia and electrolyte abnormalities. Patient endorsed a 6 day history of 5-6 episodes of non-bloody diarrhea daily with associated decreased oral intake of food and fluids. She currently endorses generalized weakness, throat pain and diarrhea. In the ED: Vital signs showed T 98.1, HR 84, RR 18, BP 111/52 and O2 saturation of 99% on room air. Labs showed WBC 7.3 with 10 bands, H&H 7.6/22.7, Plt 60, Na 131, K 2.9, Cl 96, HCO3 27, BUN/cre 20/1.3 (baseline cre 1), corrected Ca 8.8, Magnesium 0.7, and troponin <0.01. UA was showed high proteins, trace leukocyte esterase, >75 RBCs, 5-10 WBCs, few epithelial cells and few bacteria. EKG was obtained and showed NSR HR 82, QTC 430, and no ST changes. There were NEW T wave inversions in leads II, aVF, and V3-V6. Patient is admitted to the telemetry floor and the following is the management: 1. Acute diarrhea after chemotherapy * Patient endorses recurrent diarrhea after every round of chemotherapy * Dr. Guzman aware of the admission, will follow up recommendations * Continue lamotil and immodium prn * Stool culture, stool for Cdiff sent, f/u results * Guiac all stools * Diet advanced from clear liquid to full liquid (lunch) and heart healthy diet (dinner) 2. Dehydration with CHELY and hypotension * Dehydration likely 2/2 profuse diarrhea without repletion (due to decreased PO intake) * GFR dropped by >25% (baseline GFR of 55, now GFR is 40) * Patient noted to be hypotensive to 70/40 in the oncology office * BP has responded well to fluids, watch BP closely * Hold antihypertensives for now, vital signs Q shift * Orthostatics negative * AM BEP shows normalization of CHELY with BUN/cre of 16/0.9 3. Hypokalemia and hypomagnesemia * Likely secondary to chemotherapy, active diarrhea and poor PO intake * 04/12: Hypokalemia to 3.3, patient given 60 meq Kdur, improved to 4.2, then down again to 3.4 on 04/13, ordered 3X20 meq klor * 04/12: Mag lowto 1.5, IV mag given, improved to 2.1. If mag low tomorrow, would give slowmag given diarrhea. * Follow daily BEP with mag 4. T wave inversions, leads II, aVF, V3-V6 * Discontinue telemetry monitoring * Cardiology consult with Dr. Manzanares appreciated * ACS ruled out, EKG abnormalities improving with electrolyte repletion * Prior echocardiogram was on 03/29 and showed normal EF to >65% and stage 1 diastolic dysfunction without wall motion abnormalities * No arrythmias noted over night, follow cardio recs about discontinuation of tele 4. Normocytic anemia and thrombocytopenia * Likely 2/2 current chemotherapy * Patient s/p 1 U PRBC , improved to hg 8.5 * Monitor CBC daily * Guiac all stools * Hold pharm VTE prophylaxis 5. Asymptomatic bateriuria * UA shows high proteins, trace leukocyte esterase, >75 RBCs, 5-10 WBCs, few epithelial cells and few bacteria. * Patient currently asymptomatic without dysuria, foul-smelling urine etc. * Urine culture and blood cultures x 2 sent, f/u results * Monitor for fevers, consider starting antibiotics she spikes FULL CODE DVT Prophylaxis: ALPS Mild pain pathway Problem List: 1. Diarrhea 2. Hypokalemia 3. Hypomagnesemia Pain Ratin Pain Location: none Pain Goal: Remain pain free Pain Plan: none Tomorrow's Labs & Rationales: mag for hypomag bep for hypokalemia cbc for anemia DVT/Prophylaxis: mechanical
[2016-04-13 11:53] LABS: ABSOLUTE BASOPHIL COUNT 0 /CUMM (0.0-0.2); ABSOLUTE EOSINOPHIL COUNT 0 /CUMM (0.0-0.7); ABSOLUTE GRANULOCYTE CT 10.8 /CUMM (1.4-6.5); ABSOLUTE LYMPH COUNT 0.9 /CUMM (1.2-3.4); ABSOLUTE MONOCYTE COUNT 0.2 /CUMM (0.10-0.60); BASOPHIL % 0.1 % (0.0-2.0); EOSINOPHIL % 0 % (0-5); GRANULOCYTE % 90.9 % (42.2-75.2); HEMATOCRIT 23.6 % (37-47); MEAN CORPUSCULAR HGB 31.2 PG (27.0-31.0); MEAN CORPUSCULAR HGB CONC 33.7 G/DL (33.0-37.0); MEAN CORPUSCULAR VOLUME 92.6 FL (81.0-99.0); MEAN PLATELET VOLUME 9.5 FL (7.4-10.4); RBC DISTRIBUTION WIDTH 18.4 % (11.5-14.5); RED BLOOD CELL CT 2.55 /CUMM (4.20-5.40); WHITE BLOOD CELL COUNT 11.9 /CUMM (4.8-10.8)
--- NOTE | 2016-04-13 12:43 | Patient Discharge Instructions ---
Discharge Instructions General Discharge Information You were seen/treated for: Chemotherapy induced diarrhea Hypomagnesemia Hypokalemia Special Instructions: Please follow up with PCP within 1 week of discharge. Please follow up with Dr. Kim within 1 week of discharge for continued management of your breast cancer. Please have him take repeat blood work (CBC, BEP, magnesium) to monitor your magnesium and potassium levels. Diet Recommended Diet: Heart Healthy Activity Activity Self Limited: Yes Acute Coronary Syndrome Inclusion Criteria At DC or during hospital stay patient has or had the following: ACS DIAGNOSIS No Discharge Core Measures Meds if any: Prescribed or Continued at Discharge Meds if any: NOT Prescribed or Continued at Discharge Congestive Heart Failure Inclusion Criteria At DC or during hospital stay patient has or had the following: CHF DIAGNOSIS No Discharge Core Measures Meds if any: Prescribed or Continued at Discharge Meds if any: NOT Prescribed or Continued at Discharge Cerebrovascular accident Inclusion Criteria At DC or during hospital stay patient has or had the following: CVA/TIA Diagnosis No Discharge Core Measures Meds if any: Prescribed or Continued at Discharge Meds if any: NOT Prescribed or Continued at Discharge Venous thromboembolism Inclusion Criteria VTE Diagnosis No VTE Type NONE VTE Confirmed by (Test) NONE Discharge Core Measures - Per Current guidelines, there needs to be overlap - treatment for the first 5 days of Warfarin therapy. - If discharged on Warfarin prior to 5 days of - overlap therapy, the patient will need to be - assessed for post discharge needs including - *Post discharge parental anticoagulation - *Warfarin and/or parental anticoagulation education - *Follow up date to check INR post discharge At least 5 days overlap therapy as Inpatient No Meds if any: Prescribed or Continued at Discharge Note: Overlap Therapy is Warfarin and Anticoagulant Meds if any: NOT Prescribed or Continued at Discharge
--- NOTE | 2016-04-13 13:22 | PN- Att Addend ---
Attending Addendum Attending Brief Note Patient is feeling better today but less nausea no vomiting no abdominal discomfort. Tolerating the clear liquid diet advanced to full liquid. Patient is febrile with no major changes on physical with her potassium is still low continue to replace by mouth today, follow-up labs in the morning if unimproved total wrist regular diet okay then we'll start disposition plans. Current Medications Sig/Colten Start time Last Medication Dose Route Stop Time Status Admin Acetaminophen/ 1 TAB Q6P PRN 04/12 0745 AC Hydrocodone Bitart PO Aspirin 81 MG DAILY 04/11 1750 AC 04/13 PO 0907 Atorvastatin Calcium 20 MG 1700 04/11 1700 AC 04/11 PO 2227 Diphenoxylate HCl/ 2.5 MG Q6P PRN 04/12 0745 AC 04/12 Atropine PO 1828 Folic Acid 1 MG DAILY 04/12 1000 AC 04/13 PO 0907 Loperamide HCl 2 MG Q6P PRN 04/12 0845 AC 04/13 PO 1016 Magnesium Chloride 64 MG TID 04/13 1109 DC PO 04/13 2201 Magnesium Sulfate 1 GM ONCE ONE 04/13 0600 DC 04/13 N/A 1 UNIT IV 04/13 0759 0608 Magnesium Sulfate 1 GM ONCE ONE 04/13 0400 DC 04/13 N/A 1 UNIT IV 04/13 0559 0355 Magnesium Sulfate 1 GM ONCE ONE 04/12 0930 DC 04/12 Dextrose/Water 100 ML IV 04/12 1329 1049 Melatonin 5 MG AT BEDTIME 04/11 2200 AC 04/12 PO 2319 Multivitamins 1 TAB DAILY 04/12 1000 AC 04/13 Therapeutic PO 0907 Ondansetron HCl 4 MG Q6P PRN 04/12 0745 AC 04/13 IV 1015 Potassium Chloride 40 MEQ BID 04/13 1115 AC PO 04/13 2201 Prochlorperazine 5 MG Q8 PRN 04/11 1830 AC 04/12 PO 1532 Sodium Chloride 2 SPRAY Q4P PRN 04/12 0745 AC AMRIT Sodium Chloride 1,000 ML ONCE ONE 04/12 0330 DC 04/12 IV 04/12 1649 0554 Laboratory Tests 04/13/16 0955: Anion Gap 5, Estimated GFR > 60, BUN/Creatinine Ratio 18.6, Magnesium 2.1, CBC w Diff Pending, WBC Pending, RBC Pending, Hgb Pending, Hct Pending, MCV Pending, MCH Pending, RDW Pending, Plt Count Pending, MPV Pending, PUBS MCHC Pending 04/12/162012: Anion Gap 8, Estimated GFR > 60, BUN/Creatinine Ratio 20.0, Magnesium 1.5 L Vital Signs Date Time Temp Pulse Resp B/P Pulse O2 O2 Flow FiO2 Ox Delivery Rate 04/13 0739 97.6 96 18 150/70 98 Room Air Intake & Output 04/13 1600 Intake Total Output Total Balance Patient 140 lb Weight
[2016-04-13 13:34] LABS: PLATELET COUNT 45 /CUMM (130-400)
[2016-04-13 16:05] VITALS: BP 160/70
[2016-04-13 23:48] VITALS: BP 120/70
[2016-04-14 08:08] LABS: ABSOLUTE BASOPHIL COUNT 0 /CUMM (0.0-0.2); ABSOLUTE EOSINOPHIL COUNT 0 /CUMM (0.0-0.7); ABSOLUTE GRANULOCYTE CT 9.3 /CUMM (1.4-6.5); ABSOLUTE LYMPH COUNT 0.8 /CUMM (1.2-3.4); ABSOLUTE MONOCYTE COUNT 0.5 /CUMM (0.10-0.60); BASOPHIL % 0 % (0.0-2.0); EOSINOPHIL % 0 % (0-5); GRANULOCYTE % 87.9 % (42.2-75.2); HEMATOCRIT 24.4 % (37-47); MEAN CORPUSCULAR HGB 30.7 PG (27.0-31.0); MEAN CORPUSCULAR VOLUME 93.1 FL (81.0-99.0); MEAN PLATELET VOLUME 9.6 FL (7.4-10.4); PLATELET COUNT 42 /CUMM (130-400); RBC DISTRIBUTION WIDTH 18.7 % (11.5-14.5); RED BLOOD CELL CT 2.62 /CUMM (4.20-5.40); WHITE BLOOD CELL COUNT 10.6 /CUMM (4.8-10.8)
[2016-04-14 08:15] VITALS: BP 160/80
--- NOTE | 2016-04-14 08:38 | PN- Housestaff ---
Subjective Follow-up For: Acute diarrhea Breast cancer Electrolyte abnormalities T wave inversions Tele-Events Since Last Visit: Off tele. Subjective: Patient seen and examined at bedside this AM. She is resting comfortably in bed but notes that she had 4-5 loose bowel movements over the night and can eat only minimal amount of food. She feels lethargic and generally unwell. Review of Systems Constitutional: Reports: malaise. Denies: chills, fever. EENTM: Reports: epistaxis. Denies: visual changes, nasal congestion. Cardiovascular: Denies: chest pain, palpitations. Respiratory: Denies: cough, short of breath. Gastrointestinal: Reports: diarrhea. Denies: nausea, bloody stool, vomiting. Genitourinary: Denies: dysuria, hematuria, hesitation. Musculoskeletal: Denies: back pain. Skin: Denies: rash. Neurological/Psychological: Denies: headache. Hematologic/Endocrine: Denies: polyuria, polydipsia. Objective Last 24 Hrs of Vital Signs/I&O Vital Signs Date Time Temp Pulse Resp B/P Pulse O2 O2 Flow FiO2 Ox Delivery Rate 04/14 0815 98.4 80 20 160/80 97 Room Air / 2348 97.9 107 20 120/70 95 Room Air / 2328 77 160/80 03/ 2327 77 160/80 03/ 1605 97.7 90 20 160/70 98 Intake & Output / 1600 /05 0800 03/ 0000 Intake Total 70 100 Output Total Balance 70 100 Intake, IV 20 Intake, Oral 50 100 Number 3 Bowel Movements Physical Exam General Appearance: Alert, Oriented X3, Cooperative, No Acute Distress Skin: No Rashes HEENT: Atraumatic, PERRLA, Mucous Membr. moist/pink Neck: Supple, +2 Carotid Pulse wo Bruit Lymphatic: Cervical nl Cardiovascular: Regular Rate, Normal S1, Normal S2, No Murmurs Lungs: Clear to Auscultation, Normal Air Movement Abdomen: Normal Bowel Sounds, Soft, Generalized tenderness to palpation Neurological: Normal Speech, Normal Tone Extremities: No Clubbing, No Cyanosis Vascular: Pulses Symmetrical Current Medications: Current Medications Sig/Colten Start time Last Medication Dose Route Stop Time Status Admin Acetaminophen/ 1 TAB Q6P PRN 04/12 0745 AC Hydrocodone Bitart PO Aspirin 81 MG DAILY 04/11 1750 AC 04/13 PO 0907 Atenolol 25 MG DAILY 04/13 2300 AC 04/13 PO 2327 Atorvastatin Calcium 20 MG 1700 04/11 1700 AC 04/13 PO 1621 Diphenoxylate HCl/ 2.5 MG Q6P PRN 04/12 0745 AC 04/13 Atropine PO 2209 Folic Acid 1 MG DAILY 04/12 1000 AC 04/13 PO 0907 Lisinopril 20 MG DAILY 04/13 2300 AC 04/13 PO 2328 Loperamide HCl 2 MG Q6P PRN 04/12 0845 AC 04/14 PO 0353 Magnesium Chloride 64 MG TID 04/13 1109 DC PO 04/13 2201 Magnesium Sulfate 2 GM ONCE ONE 04/14 0945 UNVr Dextrose/Water 250 ML IV 04/14 1344 Melatonin 5 MG AT BEDTIME 04/11 2200 AC 04/13 PO 2149 Multivitamins 1 TAB DAILY 04/12 1000 AC 04/13 Therapeutic PO 0907 Ondansetron HCl 4 MG .STK-MED ONE 04/13 1614 DC IM 04/13 1615 Ondansetron HCl 4 MG Q6P PRN 04/12 0745 AC 04/14 IV 0359 Potassium Chloride 20 MEQ ONCE ONE 04/14 0945 UNVr PO 04/14 0946 Potassium Chloride 20 MEQ BID 04/13 1430 AC 04/13 PO 04/14 1001 2150 Potassium Chloride 40 MEQ BID 04/13 1115 DC PO 04/13 2201 Prochlorperazine 5 MG Q8 PRN 04/11 1830 AC 04/13 PO 1419 Sodium Chloride 2 SPRAY Q4P PRN 04/12 0745 AC AMRIT Last 24 Hrs of Lab/Pavel Results Last 24 Hrs of Labs/Mics: Laboratory Tests 04/14/16 0600: Anion Gap 4 L, Estimated GFR > 60, BUN/Creatinine Ratio 21.4, Magnesium 1.4 L, CBC w Diff Pending, WBC Pending, RBC Pending, Hgb Pending, Hct Pending, MCV Pending, MCH Pending, RDW Pending, Plt Count Pending, MPV Pending, PUBS MCHC Pending 04/13/16 0955: Anion Gap 5, Estimated GFR > 60, BUN/Creatinine Ratio 18.6, Magnesium 2.1, CBC w Diff NO MAN DIFF REQ, RBC 2.55 L, MCV 92.6, MCH 31.2 H, RDW 18.4 H, MPV 9.5, Gran % 90.9 H, Lymphocytes % 7.5 L, Monocytes % 1.5 L, Eosinophils % 0, Basophils % 0.1, Absolute Granulocytes 10.8 H, Absolute Lymphocytes 0.9 L, Absolute Monocytes 0.2, Absolute Eosinophils 0, Absolute Basophils 0, PUBS MCHC 33.7 Assessment/Plan Assessment: Ms. Goodman is a pleasant 75 year old female with PMH HTN, HLD and right breast cancer s/p partial resection in November of 2015 currently undergoing chemotherapy with Dr. Radha Guzman who was sent in from his office for anemia and electrolyte abnormalities. Patient endorsed a 6 day history of 5-6 episodes of non-bloody diarrhea daily with associated decreased oral intake of food and fluids. She currently endorses generalized weakness, throat pain and diarrhea. In the ED: Vital signs showed T 98.1, HR 84, RR 18, BP 111/52 and O2 saturation of 99% on room air. Labs showed WBC 7.3 with 10 bands, H&H 7.6/22.7, Plt 60, Na 131, K 2.9, Cl 96, HCO3 27, BUN/cre 20/1.3 (baseline cre 1), corrected Ca 8.8, Magnesium 0.7, and troponin <0.01. UA was showed high proteins, trace leukocyte esterase, >75 RBCs, 5-10 WBCs, few epithelial cells and few bacteria. EKG was obtained and showed NSR HR 82, QTC 430, and no ST changes. There were NEW T wave inversions in leads II, aVF, and V3-V6. Patient is admitted to the telemetry floor and the following is the management: 1. Acute diarrhea after chemotherapy * Patient endorses recurrent diarrhea after every round of chemotherapy * Dr. Guzman aware of the admission, will follow up recommendations * Continue lamotil and immodium prn * Stool culture, stool for Cdiff sent, all negative * Guiac all stools * Diet advanced to heart healthy diet yesterday, patient not eating much as she continues to have diarrhea, encourage PO fluid intake 2. Dehydration with CHELY and hypotension * Dehydration likely 2/2 profuse diarrhea without repletion (due to decreased PO intake) * GFR dropped by >25% (baseline GFR of 55, now GFR is 40) * Patient noted to be hypotensive to 70/40 in the oncology office * BP has responded well to fluids, watch BP closely * Hold antihypertensives for now, vital signs Q shift * Orthostatics negative * Normalization of CHELY with BUN/cre of 15/0.7 3. Hypokalemia and hypomagnesemia * Likely secondary to chemotherapy, active diarrhea and poor PO intake * 04/14: K of 3.8, given 20 meq Klor * 04/14: Mag low to 1.54, IV mag given * Follow daily BEP with mag 4. T wave inversions, leads II, aVF, V3-V6 * Discontinue telemetry monitoring * Cardiology consult with Dr. Manzanares appreciated * ACS ruled out, EKG abnormalities improving with electrolyte repletion * Prior echocardiogram was on 03/29 and showed normal EF to >65% and stage 1 diastolic dysfunction without wall motion abnormalities * F/U outpatient with cardiology 4. Normocytic anemia and thrombocytopenia * Likely 2/2 current chemotherapy * Patient s/p 1 U PRBC , improved to hg 8.5 * Monitor CBC daily * Guiac all stools * Hold pharm VTE prophylaxis 5. Asymptomatic bateriuria * UA shows high proteins, trace leukocyte esterase, >75 RBCs, 5-10 WBCs, few epithelial cells and few bacteria. * Patient currently asymptomatic without dysuria, foul-smelling urine etc. * Urine culture and blood cultures x 2 sent, f/u results * Monitor for fevers, consider starting antibiotics she spikes FULL CODE DVT Prophylaxis: ALPS Mild pain pathway Problem List: 1. Breast cancer 2. Abnormal EKG 3. Diarrhea 4. Hyponatremia 5. Hypotension 6. Symptomatic anemia 7. Hypokalemia 8. Hypomagnesemia Pain Ratin Pain Location: Generalized abdomen Pain Goal: Pain 4 or less Pain Plan: Mild pain pathway Tomorrow's Labs & Rationales: BEP (monitor electroltes s/p repletion), Mag (low), CBC (leukocytosis)
--- NOTE | 2016-04-14 11:57 | PN- Att Addend ---
Attending Addendum Attending Brief Note Again having diarrhea overnight. Otherwise comfortable still getting potassium and magnesium supplements by mouth and pills have to be cut in small pieces because he has a little difficulty swallowing. No other changes on physical the abdomen is soft. Will monitor today hopefully the diarrhea is gone be able to start disposition plans for home tomorrow. Current Medications Sig/Colten Start time Last Medication Dose Route Stop Time Status Admin Acetaminophen/ 1 TAB Q6P PRN 04/12 0745 AC Hydrocodone Bitart PO Aspirin 81 MG DAILY 04/11 1750 AC 04/14 PO 0951 Atenolol 25 MG DAILY 04/13 2300 AC 04/14 PO 0952 Atorvastatin Calcium 20 MG 1700 04/11 1700 AC 04/13 PO 1621 Diphenoxylate HCl/ 2.5 MG Q6P PRN 04/12 0745 AC 04/13 Atropine PO 2209 Folic Acid 1 MG DAILY 04/12 1000 AC 04/14 PO 0951 Lisinopril 20 MG DAILY 04/13 2300 AC 04/14 PO 0952 Loperamide HCl 2 MG Q6P PRN 04/12 0845 AC 04/14 PO 0953 Magnesium Oxide 400 MG BID 04/14 1006 AC 04/14 PO 04/14 2201 1117 Magnesium Sulfate 1 GM Q2H 04/14 1000 DC Dextrose/Water 100 ML IV 04/14 1359 Melatonin 5 MG AT BEDTIME 04/11 2200 AC 04/13 PO 2149 Multivitamins 1 TAB DAILY 04/12 1000 AC 04/14 Therapeutic PO 0951 Ondansetron HCl 4 MG .STK-MED ONE 04/14 0354 DC IM 04/14 0355 Ondansetron HCl 4 MG .STK-MED ONE 04/13 1614 DC IM 04/13 1615 Ondansetron HCl 4 MG Q6P PRN 04/12 0745 AC 04/14 IV 0359 Potassium Chloride 20 MEQ ONCE ONE 04/14 1015 DC 03 PO 04/14 1016 1117 Potassium Chloride 20 MEQ ONCE ONE 04/14 0945 CAN PO 04/14 0946 Potassium Chloride 20 MEQ BID 04/13 1430 DC 04/13 PO 04/14 1001 2150 Potassium Chloride 40 MEQ BID 04/13 1115 DC PO 04/13 2201 Prochlorperazine 5 MG Q8 PRN 04/11 1830 AC 04/13 PO 1419 Sodium Chloride 2 SPRAY Q4P PRN 04/12 0745 AC AMRIT Laboratory Tests 04/14/16 0600: Anion Gap 4 L, Estimated GFR > 60, BUN/Creatinine Ratio 21.4, Magnesium 1.4 L, CBC w Diff MAN DIFF ORDERED, RBC 2.62 L, MCV 93.1, MCH 30.7, RDW 18.7 H, MPV 9.6, Gran % 87.9 H, Lymphocytes % 7.7 L, Monocytes % 4.4, Eosinophils % 0, Basophils % 0 L, Absolute Granulocytes 9.3 H, Segmented Neutrophils 83 H, Band Neutrophils 5, Absolute Lymphocytes 0.8 L, Lymphocytes 7 L, Monocytes 4, Absolute Monocytes 0.5, Eosinophils 1, Absolute Eosinophils 0, Absolute Basophils 0, Poikilocytosis 1+, Anisocytosis 2+, PUBS MCHC 33.0 04/13/16 0955: Anion Gap 5, Estimated GFR > 60, BUN/Creatinine Ratio 18.6, Magnesium 2.1, CBC w Diff NO MAN DIFF REQ, RBC 2.55 L, MCV 92.6, MCH 31.2 H, RDW 18.4 H, MPV 9.5, Gran % 90.9 H, Lymphocytes % 7.5 L, Monocytes % 1.5 L, Eosinophils % 0, Basophils % 0.1, Absolute Granulocytes 10.8 H, Absolute Lymphocytes 0.9 L, Absolute Monocytes 0.2, Absolute Eosinophils 0, Absolute Basophils 0, PUBS MCHC 33.7 04/12/162012: Anion Gap 8, Estimated GFR > 60, BUN/Creatinine Ratio 20.0, Magnesium 1.5 L Vital Signs Date Time Temp Pulse Resp B/P Pulse O2 O2 Flow FiO2 Ox Delivery Rate 04/15 951 150/70 04/15 951 150/70 04/14 0815 98.4 80 20 160/80 97 Room Air
[2016-04-14 15:29] VITALS: BP 160/72
[2016-04-14 23:33] VITALS: BP 160/80
--- NOTE | 2016-04-15 06:58 | PN- Housestaff ---
Subjective Follow-up For: Chemotherapy induced diarrhea Nausea Electrolyte abnormalities Tele-Events Since Last Visit: Off tele. Subjective: Patient seen and examined at bedside this AM. She endorses improvement of her abdominal cramping after receiving simethicone last night. She reports she had only one bowel movement since overnight/early this AM and it was more solid. She is tolerating oral food intake (bananas, toast). Review of Systems Constitutional: Reports: malaise. Denies: chills, fever, weakness. EENTM: Denies: blurred vision, double vision, visual changes, hearing changes, nasal congestion. Cardiovascular: Denies: chest pain, palpitations. Respiratory: Denies: cough, short of breath. Gastrointestinal: Reports: abdominal pain (Improving), nausea. Denies: vomiting. Genitourinary: Denies: dysuria, hematuria. Musculoskeletal: Denies: back pain, joint pain. Skin: Denies: rash. Neurological/Psychological: Denies: confusion, headache. Hematologic/Endocrine: Denies: bruising, bleeding. Objective Last 24 Hrs of Vital Signs/I&O Vital Signs Date Time Temp Pulse Resp B/P Pulse O2 O2 Flow FiO2 Ox Delivery Rate 04/15 0911 144/70 03/ 0910 144/70 / 0825 98.6 88 18 148/78 96 Room Air 03/ 2333 98.0 87 18 160/80 97 Room Air 03/05 1529 97.7 61 18 160/72 97 03/05 0952 150/70 03/05 0952 150/70 Intake & Output / 1600 /06 0800 03 0000 Intake Total 200 Output Total Balance 200 Intake, Oral 200 Number 1 Bowel Movements Physical Exam General Appearance: Alert, Oriented X3, Cooperative, No Acute Distress Skin: No Rashes, No Significant Lesion HEENT: Atraumatic, PERRLA, Mucous Membr. moist/pink Neck: Supple, No JVD Lymphatic: Cervical nl Cardiovascular: Regular Rate, Normal S1, Normal S2 Lungs: Clear to Auscultation, Normal Air Movement Abdomen: Normal Bowel Sounds, Soft, Minimal tenderness to generalized palpation Neurological: Normal Speech, Normal Tone Extremities: No Clubbing, No Cyanosis Vascular: Pulses Symmetrical Current Medications: Current Medications Sig/Colten Start time Last Medication Dose Route Stop Time Status Admin Acetaminophen/ 1 TAB Q6P PRN 04/12 0745 AC 04/14 Hydrocodone Bitart PO 2007 Aspirin 81 MG DAILY 04/11 1750 AC 04/15 PO 0910 Atenolol 25 MG DAILY 04/13 2300 AC 04/15 PO 0910 Atorvastatin Calcium 20 MG 1700 04/11 1700 AC 04/14 PO 1533 Diphenoxylate HCl/ 2.5 MG Q6P PRN 04/12 0745 AC 04/13 Atropine PO 2209 Erythromycin 1 LATRELL 4 TIMES/DAY 04/15 1000 CAN OPH Erythromycin 1 LATRELL 4 TIMES/DAY 04/15 1000 AC OPH Folic Acid 1 MG DAILY 04/12 1000 AC 04/15 PO 0910 Lactobacillus 1 CAP DAILY 04/14 1905 AC 04/15 Acidophilus PO 0910 Lisinopril 20 MG DAILY 04/13 2300 AC 04/15 PO 0911 Loperamide HCl 2 MG .STK-MED ONE 04/14 1628 DC PO 04/14 1629 Loperamide HCl 2 MG .STK-MED ONE 04/14 0947 DC PO 04/14 0948 Loperamide HCl 2 MG Q6P PRN 04/12 0845 AC 04/15 PO 0913 Magnesium Oxide 400 MG ONE TIME ONE 04/15 0915 DC PO 04/15 0916 Magnesium Oxide 400 MG BID 04/14 1006 DC 04/14 PO 04/14 2201 2215 Magnesium Sulfate 1 GM ONCE ONE 04/15 0915 AC Dextrose/Water 100 ML IV 04/15 1314 Magnesium Sulfate 1 GM Q2H 04/14 1000 DC Dextrose/Water 100 ML IV 04/14 1359 Melatonin 5 MG AT BEDTIME 04/11 2200 AC 04/14 PO 2215 Multivitamins 1 TAB DAILY 04/12 1000 AC 04/15 Therapeutic PO 0910 Ondansetron HCl 4 MG .STK-MED ONE 04/14 2216 DC IM 04/14 2217 Ondansetron HCl 4 MG Q6P PRN 04/12 0745 AC 04/14 IV 2219 Potassium Chloride 40 MEQ ONCE ONE 04/15 0915 DC PO 04/15 0916 Potassium Chloride 20 MEQ ONCE ONE 04/14 1015 DC 03 PO 04/14 1016 1117 Potassium Chloride 20 MEQ ONCE ONE 04/14 0945 CAN PO 04/14 0946 Potassium Chloride 20 MEQ BID 04/13 1430 DC 04/13 PO 04/14 1001 2150 Prochlorperazine 5 MG Q8 PRN 04/11 1830 AC 04/14 PO 1748 Simethicone 40 MG Q6P PRN 04/15 0130 AC PO Sodium Chloride 2 SPRAY Q4P PRN 04/12 0745 AC AMRIT Last 24 Hrs of Lab/Pavel Results Last 24 Hrs of Labs/Mics: Laboratory Tests 04/15/16 0810: Anion Gap 4 L, Estimated GFR > 60, BUN/Creatinine Ratio 26.7 H, Magnesium 1.2 L, CBC w Diff NO MAN DIFF REQ, RBC 2.53 L, MCV 91.8, MCH 30.6, RDW 18.4 H, MPV 9.3, Gran % 78.5 H, Lymphocytes % 16.0 L, Monocytes % 5.1, Eosinophils % 0.1, Basophils % 0.3, Absolute Granulocytes 4.6, Absolute Lymphocytes 0.9 L, Absolute Monocytes 0.3, Absolute Eosinophils 0, Absolute Basophils 0, PUBS MCHC 33.3 Assessment/Plan Assessment: Ms. Goodman is a pleasant 75 year old female with PMH HTN, HLD and right breast cancer s/p partial resection in November of 2015 currently undergoing chemotherapy with Dr. Radha Guzman who was sent in from his office for anemia and electrolyte abnormalities. Patient endorsed a 6 day history of 5-6 episodes of non-bloody diarrhea daily with associated decreased oral intake of food and fluids. On presentation, she endorsed generalized weakness, throat pain and diarrhea. In the ED: Vital signs showed T 98.1, HR 84, RR 18, BP 111/52 and O2 saturation of 99% on room air. Labs showed WBC 7.3 with 10 bands, H&H 7.6/22.7, Plt 60, Na 131, K 2.9, Cl 96, HCO3 27, BUN/cre 20/1.3 (baseline cre 1), corrected Ca 8.8, Magnesium 0.7, and troponin <0.01. UA was showed high proteins, trace leukocyte esterase, >75 RBCs, 5-10 WBCs, few epithelial cells and few bacteria. EKG was obtained and showed NSR HR 82, QTC 430, and no ST changes. There were NEW T wave inversions in leads II, aVF, and V3-V6. Patient is admitted to the telemetry floor and the following is the management: 1. Acute diarrhea after chemotherapy * Patient endorses recurrent diarrhea after every round of chemotherapy * Dr. Guzman aware of the admission, consult appreciated * Continue lamotil and immodium prn, will discharge patient on these medications * Stool culture, stool for Cdiff sent, all negative * Guiac all stools * Diet advanced to heart healthy diet, patient eating more food than prior, tolerating toast and bananas without vomiting and only one episode of semi- formed stool this AM * Follow up with Dr. Guzman within 7 days of discharge for continued management of breast cancer and to follow lab work 2. Dehydration with CHELY and hypotension * Dehydration likely 2/2 profuse diarrhea without repletion (due to decreased PO intake) * GFR dropped by >25% (baseline GFR of 55, now GFR is 40) * Patient noted to be hypotensive to 70/40 in the oncology office * BP has responded well to fluids, continue to watch BP closely * Antihypertensives restarted as BP well controlled, vital signs Q shift * Orthostatics negative * Normalization of CHELY as she has been tolerating PO intake 3. Hypokalemia and hypomagnesemia * Likely secondary to chemotherapy, active diarrhea and poor PO intake * 36: K of 3.5, given 40 meq Kdur * 04/15: Mag low to 1.2, IV mag 1 gm given with 400 meq PO mag * Patient to have repet BEP/Mag within [address] Guzman's office * Will likely discharge patient on PO mag for daily supplementation 4. T wave inversions, leads II, aVF, V3-V6 * Discontinue telemetry monitoring * Cardiology consult with Dr. Manzanares appreciated * ACS ruled out, EKG abnormalities improved with electrolyte repletion * Prior echocardiogram was on 03/29 and showed normal EF to >65% and stage 1 diastolic dysfunction without wall motion abnormalities * F/U outpatient with cardiology 4. Normocytic anemia and thrombocytopenia * Likely 2/2 current chemotherapy * Patient s/p 1 U PRBC, will receive 1 more U prbcs today for Hgb 7.7 * Monitor CBC daily * Guiac all stools * Hold pharm VTE prophylaxis 5. Asymptomatic bateriuria * UA shows high proteins, trace leukocyte esterase, >75 RBCs, 5-10 WBCs, few epithelial cells and few bacteria. * Patient currently asymptomatic without dysuria, foul-smelling urine etc. * Urine culture and blood cultures x 2 sent, NGTD FULL CODE DVT Prophylaxis: ALPS Mild pain pathway Problem List: 1. Breast cancer 2. Abnormal EKG 3. Diarrhea 4. Hyponatremia 5. Hypotension 6. Hypomagnesemia 7. Hypokalemia Pain Ratin Pain Location: Generalized abdominal tenderness Pain Goal: Pain 4 or less Pain Plan: Simethicone for cramping, vicodin PRN abdominal pain. Tomorrow's Labs & Rationales: If not discharged today, repeat BEP and Mag tomorrow.
--- NOTE | 2016-04-15 08:10 | PN- Oncology ---
Subjective Subjective: She feels better today. She is able to tolerate some oral intake. She has 2 episodes of diarrhea yesterday. She had a formed bowel movement this morning. Her abdominal pain is improved. She has no fever or chills. She has some irritation in her eyes. Review of Systems Constitutional: Denies: chills, fever, weakness. EENTM: Reports: eye drainage, eye tearing. Cardiovascular: Denies: chest pain. Gastrointestinal: Reports: bloating, diarrhea. Denies: abdominal pain, nausea, vomiting. Genitourinary: Denies: dysuria. Skin: Reports: rash. Hematologic/Endocrine: Denies: bleeding. All Other Systems: Reviewed and Negative Objective Vital Signs and I&Os Vital Signs Date Time Temp Pulse Resp B/P Pulse O2 O2 Flow FiO2 Ox Delivery Rate 04/14 2333 98.0 87 18 160/80 97 Room Air 04/14 1529 97.7 61 18 160/72 97 04/14 0952 150/70 04/14 0952 150/70 04/14 0815 98.4 80 20 160/80 97 Room Air Intake & Output 04/15 0800 / 0000 /05 1600 / 0800 / 0000 / 1600 Intake Total 200 400 70 100 480 Output Total 600 Balance 200 -200 70 100 480 Intake, IV 20 Intake, Oral 200 400 50 100 480 Number 1 3 Bowel Movements Output, Urine 600 Patient 63.503 kg Weight Physical Exam General Appearance: alert, awake, comfortable Head: atraumatic, conjunctival irration in her eyelids, darken area under her eyes. Ears, Nose, Throat: normal pharynx Neck: normal inspection, supple Respiratory: normal breath sounds, chest non-tender, no respiratory distress Cardiovascular: regular rate/rhythm Abdomen: normal bowel sounds, soft, non-tender Extremities: no edema Neurologic/Psychiatric: alert, oriented x 3, normal gait Current Medications: Current Medications Sig/Colten Start time Last Medication Dose Route Stop Time Status Admin Acetaminophen/ 1 TAB Q6P PRN 04/12 0745 AC 04/14 Hydrocodone Bitart PO 2006 Aspirin 81 MG DAILY 04/11 1750 AC 04/14 PO 0951 Atenolol 25 MG DAILY 04/13 2300 AC 04/14 PO 0952 Atorvastatin Calcium 20 MG 1700 04/11 1700 AC 04/14 PO 1533 Diphenoxylate HCl/ 2.5 MG Q6P PRN 04/12 0745 AC 04/13 Atropine PO 2209 Folic Acid 1 MG DAILY 04/12 1000 AC 04/14 PO 0951 Lactobacillus 1 CAP DAILY 04/14 1905 AC 04/14 Acidophilus PO 2027 Lisinopril 20 MG DAILY 04/13 2300 AC 04/14 PO 0952 Loperamide HCl 2 MG .STK-MED ONE 04/14 1628 DC PO 04/14 1629 Loperamide HCl 2 MG .STK-MED ONE 04/14 0947 DC PO 04/14 0948 Loperamide HCl 2 MG Q6P PRN 04/12 0845 AC 04/14 PO 1631 Magnesium Oxide 400 MG BID 04/14 1006 DC 04/14 PO 04/14 2201 2215 Magnesium Sulfate 1 GM Q2H 04/14 1000 DC Dextrose/Water 100 ML IV 04/14 1359 Melatonin 5 MG AT BEDTIME 04/11 2200 AC 04/14 PO 2215 Multivitamins 1 TAB DAILY 04/12 1000 AC 04/14 Therapeutic PO 0951 Ondansetron HCl 4 MG .STK-MED ONE 04/14 2216 DC IM 04/14 2217 Ondansetron HCl 4 MG Q6P PRN 04/12 0745 AC 04/14 IV 2219 Potassium Chloride 20 MEQ ONCE ONE 04/14 1015 DC / PO 04/14 1016 1117 Potassium Chloride 20 MEQ ONCE ONE 04/14 0945 CAN PO 04/14 0946 Potassium Chloride 20 MEQ BID 04/13 1430 DC 04/13 PO 04/14 1001 2150 Prochlorperazine 5 MG Q8 PRN 04/11 1830 AC 04/14 PO 1748 Simethicone 40 MG Q6P PRN 04/15 0130 AC PO Sodium Chloride 2 SPRAY Q4P PRN 04/12 0745 AC AMRIT Assessment/Plan Assessment/Recommendations: Ms. Goodman is a 75-year-old female with stage IIA breast cancer status post partial mastectomy now on adjuvant TCHP therapy who presents with diarrhea, dehydration, and electrolyte abnormalities. She is improving with IVF. She is tolerating her food now. She does have conjunctival irritation, eye drainage, and skin breakdown on her lower eyelids. She has some rash in her right arm which may be related to contact dermatitis. Rash has also been seen in patient receiving pertuzumab. She can use topical steroid for now. Recommendations: 1. Compazine and Zofran prn nasuea 2. Lomotil and Imodium prn for diarrhea 3. Erythromycin ointment for eyes 4. Keep hemoglobin >8 5. Topical low potency steroid for rash Please call [phone] with any questions or concerns. Problem List: 1. Breast cancer 2. Symptomatic anemia 3. Diarrhea
[2016-04-15 08:25] VITALS: BP 148/78
[2016-04-15] MEDS ORDERED: ERYTHROMYCIN1 GM OPH ×2 (08:27→08:32)
[2016-04-15] MEDS ORDERED: GAS-X80 M1 PO ×2 (08:27→08:32)
[2016-04-15] MEDS ORDERED: PROBIOTIC1 EACH PO ×2 (08:28→08:32)
[2016-04-15] MEDS ORDERED: LOPERAMIDE2 M2 PO ×2 (08:29→08:32)
[2016-04-15] MEDS ORDERED: LOMOTIL 2.5-0.1 EACH PO (08:31)
[2016-04-15 08:44] LABS: ABSOLUTE BASOPHIL COUNT 0 /CUMM (0.0-0.2); ABSOLUTE EOSINOPHIL COUNT 0 /CUMM (0.0-0.7); ABSOLUTE GRANULOCYTE CT 4.6 /CUMM (1.4-6.5); ABSOLUTE LYMPH COUNT 0.9 /CUMM (1.2-3.4); ABSOLUTE MONOCYTE COUNT 0.3 /CUMM (0.10-0.60); BASOPHIL % 0.3 % (0.0-2.0); EOSINOPHIL % 0.1 % (0-5); GRANULOCYTE % 78.5 % (42.2-75.2); HEMATOCRIT 23.2 % (37-47); MEAN CORPUSCULAR HGB 30.6 PG (27.0-31.0); MEAN CORPUSCULAR HGB CONC 33.3 G/DL (33.0-37.0); MEAN CORPUSCULAR VOLUME 91.8 FL (81.0-99.0); MEAN PLATELET VOLUME 9.3 FL (7.4-10.4); RBC DISTRIBUTION WIDTH 18.4 % (11.5-14.5); RED BLOOD CELL CT 2.53 /CUMM (4.20-5.40); WHITE BLOOD CELL COUNT 5.9 /CUMM (4.8-10.8)
[2016-04-15 09:07] LABS: PLATELET COUNT 42 /CUMM (130-400)
[2016-04-15] MEDS ORDERED: MAGNESIUM400 M1 PO (09:15)
--- NOTE | 2016-04-15 10:14 | PN- Att Addend ---
Attending Addendum Attending Brief Note Patient looking and feeling better today, 1 loose bowel movement today. No nausea about tolerating the diet vital signs stable. No changes in physical. Potassium is improved magnesium stable replacing. Oncologist recommended 1 more unit of blood to be transfused. We will do that and after stable we'll start disposition plans to go home Current Medications Sig/Colten Start time Last Medication Dose Route Stop Time Status Admin Acetaminophen/ 1 TAB Q6P PRN 04/12 0745 AC 04/14 Hydrocodone Bitart PO 2006 Aspirin 81 MG DAILY 04/11 1750 AC 04/15 PO 0910 Atenolol 25 MG DAILY 04/13 2300 AC 04/15 PO 0910 Atorvastatin Calcium 20 MG 1700 04/11 1700 AC 04/14 PO 1533 Diphenoxylate HCl/ 2.5 MG Q6P PRN 04/12 0745 AC 04/13 Atropine PO 2209 Erythromycin 1 LATRELL 4 TIMES/DAY 04/15 1000 CAN OPH Erythromycin 1 LATRELL 4 TIMES/DAY 04/15 1000 AC OPH Folic Acid 1 MG DAILY 04/12 1000 AC 04/15 PO 0910 Lactobacillus 1 CAP DAILY 04/14 1905 AC 04/15 Acidophilus PO 0910 Lisinopril 20 MG DAILY 04/13 2300 AC 04/15 PO 0911 Loperamide HCl 2 MG .STK-MED ONE 04/14 1628 DC PO 04/14 1629 Loperamide HCl 2 MG Q6P PRN 04/12 0845 AC 04/15 PO 0913 Magnesium Oxide 400 MG ONE TIME ONE 04/15 0915 DC PO 04/15 0916 Magnesium Oxide 400 MG BID 04/14 1006 DC 04/14 PO 04/14 2201 2215 Magnesium Sulfate 1 GM ONCE ONE 04/15 0815 AC Dextrose/Water 100 ML IV 04/15 1314 Melatonin 5 MG AT BEDTIME 04/11 2200 AC 04/14 PO 2215 Multivitamins 1 TAB DAILY 04/12 1000 AC 04/15 Therapeutic PO 0910 Ondansetron HCl 4 MG .STK-MED ONE 04/14 2216 DC IM 04/14 2217 Ondansetron HCl 4 MG Q6P PRN 04/12 0745 AC 04/14 IV 2219 Potassium Chloride 40 MEQ ONCE ONE 04/15 0915 DC PO 04/15 0916 Potassium Chloride 20 MEQ ONCE ONE 04/14 1015 DC 04/14 PO 04/14 1016 1117 Prochlorperazine 5 MG Q8 PRN 04/11 1830 AC 04/14 PO 1748 Simethicone 40 MG Q6P PRN 04/15 0130 AC PO Sodium Chloride 2 SPRAY Q4P PRN 04/12 0745 AC AMRIT Laboratory Tests 04/15/16 0810: Anion Gap 4 L, Estimated GFR > 60, BUN/Creatinine Ratio 26.7 H, Magnesium 1.2 L, CBC w Diff NO MAN DIFF REQ, RBC 2.53 L, MCV 91.8, MCH 30.6, RDW 18.4 H, MPV 9.3, Gran % 78.5 H, Lymphocytes % 16.0 L, Monocytes % 5.1, Eosinophils % 0.1, Basophils % 0.3, Absolute Granulocytes 4.6, Absolute Lymphocytes 0.9 L, Absolute Monocytes 0.3, Absolute Eosinophils 0, Absolute Basophils 0, PUBS MCHC 33.3 Vital Signs Date Time Temp Pulse Resp B/P Pulse O2 O2 Flow FiO2 Ox Delivery Rate 04/15 0911 144/70 04/15 0910 144/70 04/15 0825 98.6 88 18 148/78 96 Room Air Also to continue erythromycin for her eyes.
--- NOTE | 2016-04-15 11:25 | NUR ---
PT CANCELL FOR PT AT THIS TIME, LOW H/H, GOING TO BE TRANSFUSED
--- NOTE | 2016-04-15 13:19 | NUR ---
CANCEL PT EVAL FOR TODAY. PT WITH LOW H/H, RECEIVING BLOOD TRANSFUSION.
[2016-04-15 17:17] VITALS: BP 148/72
[2016-04-15 17:41] LABS: ABSOLUTE BASOPHIL COUNT 0 /CUMM (0.0-0.2); ABSOLUTE EOSINOPHIL COUNT 0 /CUMM (0.0-0.7); ABSOLUTE GRANULOCYTE CT 6.6 /CUMM (1.4-6.5); ABSOLUTE MONOCYTE COUNT 0.4 /CUMM (0.10-0.60); BASOPHIL % 0.2 % (0.0-2.0); EOSINOPHIL % 0.3 % (0-5); GRANULOCYTE % 82.5 % (42.2-75.2); MEAN CORPUSCULAR HGB 30.8 PG (27.0-31.0); MEAN CORPUSCULAR HGB CONC 33.8 G/DL (33.0-37.0); MEAN CORPUSCULAR VOLUME 91.2 FL (81.0-99.0); MEAN PLATELET VOLUME 8.5 FL (7.4-10.4); RBC DISTRIBUTION WIDTH 17.6 % (11.5-14.5); WHITE BLOOD CELL COUNT 8.1 /CUMM (4.8-10.8)
[2016-04-15 17:45] LABS: HEMATOCRIT 29.9 % (37-47); RED BLOOD CELL CT 3.28 /CUMM (4.20-5.40)
[2016-04-15 17:46] LABS: PLATELET COUNT 38 /CUMM (130-400)
--- NOTE | 2016-04-23 15:59 | Discharge Summary ---
Visit Information Visit Dates Admission Date: 04/11/16 Discharge Date: 04/15/16 Hospital Course Course Attending Physician: KLEBER REYNOSO MD Primary Care Physician: KLEBER REYNOSO MD Consulting Request: Consulting Specialty: Cardiology (and oncology) Consulting Physician: Dr. Moe Manzanares and DR Prabhakar Reason for Consult: EKG abnormalities and history of breast cancer on chemotherapy Hospital Course: 75-year-old white female with recent history of right breast cancer status post surgery and actually on chemotherapy. Went to see her oncologist not feeling well weak having diarrhea and anorexia. Was found to be very anemic little hypotensive. When she came to the emergency room was found to be hypokalemic low magnesium again the anemia also had some EKG abnormalities with some ST-T abnormalities are the patient was admitted had a cardiology evaluation patient had gentle hydration placing her electrolytes and transfusion patient slowly improved her EKG abnormalities reverted to her troponins were low is negative. Finally she was stable enough to be discharged on follow-up with all the specialists and myself. Complications: None Allergies: Coded Allergies: NO KNOWN ALLERGIES (11/30/15) Pertinent Lab Results: Laboratory Tests 04/11/16 1336: Urinalysis LIGHT H, Urine Color YEL, Urine Clarity HAZY H, Urine pH 6.0, Ur Specific Dinosaur 1.010, Urine Protein TRACE H, Urine Ketones NEG, Urine Nitrite NEG, Urine Bilirubin NEG, Urine Urobilinogen 0.2, Ur Leukocyte Esterase TRACE H , Ur Microscopic SEDIMENT EXAMINED, Urine RBC >75 H, Urine WBC 5-10 H, Ur Epithelial Cells FEW, Urine Bacteria FEW H, Hyaline Casts RARE H, Urine Hemoglobin LARGE H, Urine Glucose NEG 04/11/16 1330: Anion Gap 8, Estimated GFR 40 L, BUN/Creatinine Ratio 15.4, Glucose 116 H, Calcium 7.6 L, Magnesium 0.7 *L, Total Bilirubin 0.5, AST 19, ALT 34, Alkaline Phosphatase 58, Troponin I < 0.01, Total Protein 4.5 L, Albumin 2.5 L, Globulin 2.0, Albumin/Globulin Ratio 1.3, CBC w Diff MAN DIFF ORDERED, RBC 2.44 L, MCV 92.7, MCH 31.1 H, RDW 19.6 H, MPV 9.5, Gran % 63.4, Lymphocytes % 19.1 L, Monocytes % 17.1 H, Eosinophils % 0.1, Basophils % 0.3, Absolute Granulocytes 4.6, Segmented Neutrophils 56, Band Neutrophils 10 H, Absolute Lymphocytes 1.4, Lymphocytes 22, Monocytes 12 H, Absolute Monocytes 1.2 H, Absolute Eosinophils 0, Absolute Basophils 0, Platelet Estimate DECREASED, Poikilocytosis 1+, Anisocytosis 1+, [facility] [place] MCHC 33.5 Microbiology 04/11 1336 URINE ROUT: Urine Culture - RECD Diagnostic Data EKG Results NSR, HR 82, no ST changs, QTC 430. New T wave inversions noted in leads II, aVF, V3-V6. Other Results Echocardiogram 03/26/16: CONCLUSIONS Small left ventricular cavity. No obvious regional wall motion abnormalities. Normal left ventricular ejection fraction visually estimated at > 65%. Abnormal relaxation filling pattern of the left ventricle for age (stage 1 diastolic dysfunction). Normal right ventricular size and function. Normal atrial size. Mild mitral regurgitation. Trace aortic regurgitation. Mild tricuspid regurgitation. Laboratory Tests 04/12/16 0600: Anion Gap 8, Estimated GFR > 60, BUN/Creatinine Ratio 17.8, Magnesium 1.5 L 04/12/16 0230: Troponin I < 0.01 04/11/16 2200: CBC w Diff NO MAN DIFF REQ, RBC 2.75 L, MCV 90.8, MCH 31.0, RDW 17.3 H, MPV 9.7, Gran % 82.7 H, Lymphocytes % 9.3 L, Monocytes % 7.9, Eosinophils % 0, Basophils % 0.1, Absolute Granulocytes 7.8 H, Absolute Lymphocytes 0.9 L, Absolute Monocytes 0.8 H, Absolute Eosinophils 0, Absolute Basophils 0, [facility] [place] MCHC 34.1 04/11/16 1945: Anion Gap 7, Estimated GFR 44 L, BUN/Creatinine Ratio 14.2, Magnesium 1.7, Troponin I < 0.01 04/11/16 1930: Sodium Cancelled, Potassium Cancelled, Chloride Cancelled, Carbon Dioxide Cancelled, Anion Gap Cancelled, BUN Cancelled, Creatinine Cancelled, BUN/ Creatinine Ratio Cancelled, Magnesium Cancelled, CBC w Diff Cancelled, WBC Cancelled, RBC Cancelled, Hgb Cancelled, Hct Cancelled, MCV Cancelled, MCH Cancelled, RDW Cancelled, Plt Count Cancelled, MPV Cancelled, PUBS MCHC Cancelled 04/11/16 1336: Urinalysis LIGHT H, Urine Color YEL, Urine Clarity HAZY H, Urine pH 6.0, Ur Specific Dinosaur 1.010, Urine Protein TRACE H, Urine Ketones NEG, Urine Nitrite NEG, Urine Bilirubin NEG, Urine Urobilinogen 0.2, Ur Leukocyte Esterase TRACE H , Ur Microscopic SEDIMENT EXAMINED, Urine RBC >75 H, Urine WBC 5-10 H, Ur Epithelial Cells FEW, Urine Bacteria FEW H, Hyaline Casts RARE H, Urine Hemoglobin LARGE H, Urine Glucose NEG 04/11/16 1330: Anion Gap 8, Estimated GFR 40 L, BUN/Creatinine Ratio 15.4, Glucose 116 H, Calcium 7.6 L, Magnesium 0.7 *L, Total Bilirubin 0.5, AST 19, ALT 34, Alkaline Phosphatase 58, Troponin I < 0.01, Total Protein 4.5 L, Albumin 2.5 L, Globulin 2.0, Albumin/Globulin Ratio 1.3, CBC w Diff MAN DIFF ORDERED, RBC 2.44 L, MCV 92.7, MCH 31.1 H, RDW 19.6 H, MPV 9.5, Gran % 63.4, Lymphocytes % 19.1 L, Monocytes % 17.1 H, Eosinophils % 0.1, Basophils % 0.3, Absolute Granulocytes 4.6, Segmented Neutrophils 56, Band Neutrophils 10 H, Absolute Lymphocytes 1.4, Lymphocytes 22, Monocytes 12 H, Absolute Monocytes 1.2 H, Absolute Eosinophils 0, Absolute Basophils 0, Platelet Estimate DECREASED, Poikilocytosis 1+, Anisocytosis 1+, [facility] [place] MCHC 33.5 Mild pulmonary hypertension. Mildly dilated inferior vena cava. 04/13/16 0955: Anion Gap 5, Estimated GFR > 60, BUN/Creatinine Ratio 18.6, Magnesium 2.1, CBC w Diff Pending, WBC Pending, RBC Pending, Hgb Pending, Hct Pending, MCV Pending, MCH Pending, RDW Pending, Plt Count Pending, MPV Pending, [facility] Pending 04/14/16 0600: Anion Gap 4 L, Estimated GFR > 60, BUN/Creatinine Ratio 21.4, Magnesium 1.4 L, CBC w Diff MAN DIFF ORDERED, RBC 2.62 L, MCV 93.1, MCH 30.7, RDW 18.7 H, MPV 9.6, Gran % 87.9 H, Lymphocytes % 7.7 L, Monocytes % 4.4, Eosinophils % 0, Basophils % 0 L, Absolute Granulocytes 9.3 H, Segmented Neutrophils 83 H, Band Neutrophils 5, Absolute Lymphocytes 0.8 L, Lymphocytes 7 L, Monocytes 4, Absolute Monocytes 0.5, Eosinophils 1, Absolute Eosinophils 0, Absolute Basophils 0, Poikilocytosis 1+, Anisocytosis 2+, PUBS MCHC 33.0 04/15/16 0810: Anion Gap 4 L, Estimated GFR > 60, BUN/Creatinine Ratio 26.7 H, Magnesium 1.2 L, CBC w Diff NO MAN DIFF REQ, RBC 2.53 L, MCV 91.8, MCH 30.6, RDW 18.4 H, MPV 9.3, Gran % 78.5 H, Lymphocytes % 16.0 L, Monocytes % 5.1, Eosinophils % 0.1, Basophils % 0.3, Absolute Granulocytes 4.6, Absolute Lymphocytes 0.9 L, Absolute Monocytes 0.3, Absolute Eosinophils 0, Absolute Basophils 0, PUBS MCHC 33.3 Disposition Summary Disposition Principal Diagnosis: Weakness Electrolyte imbalance Anemia Breast cancer Additional Diagnosis: Hypertension Hyperlipidemia Discharge Disposition: home or self care Discharge Instructions General Discharge Information Code Status: Full Code Patient's Diet: As tolerated Patient's Activity: As tolerated Follow-Up Instructions/Appts: Follow-up with oncologist behavioral health worker and myself Medications at Discharge Discharge Medications: Continue taking these medications: Atenolol (Atenolol) 25 MG TABLET 1 Tablet ORAL DAILY Comments: Last Taken: 04/15 Time: 9AM Lisinopril (Lisinopril) 20 MG TABLET 1 Tablet ORAL DAILY Comments: Last Taken: 04/15 Time: 9AM Simvastatin (Simvastatin*) 40 MG TABLET 1 Tablet ORAL Every night Comments: Last Taken: 04/15 Time: 6PM Hydrochlorothiazide (Hydrochlorothiazide) 25 MG TABLET 1 Tablet ORAL DAILY Comments: Last Taken: NOT GIVEN IN HOSPITAL Time: Aspirin (Aspirin*) 81 MG TAB.CHEW 1 Tablet ORAL DAILY Comments: Last Taken: 04/15 Time: 9AM Folic Acid (Folic Acid) 1 MG TABLET 1 Tablet ORAL DAILY Comments: Last Taken: 04/15 Time: 9AM Multivitamin (Daily Multiple Vitamin) 1 EACH TABLET 1 Tablet ORAL DAILY Comments: Last Taken: 04/15 Time: 9AM Pyridoxine HCl (Pyridoxine HCl) 500 MG TABLET 1 Tablet ORAL DAILY Comments: Last Taken: NOT GIVEN IN HOSPITAL Time: Erythromycin Base (Erythromycin) 5 MG/GRAM (0.5 %) OINT...G. 1 Application In the eye 4 times daily as needed as needed for Eye redness Qty = 3.5 Instructions: apply 1 cm ribbon into the lower conjunctival sac Comments: Last Taken: 04/15 Time: 6PM Simethicone (Gas-X) 80 MG TAB.CHEW 0.5 Tablet ORAL EVERY SIX HOURS NEEDED as needed for Gas Qty = 10 Comments: Last Taken: NOT GIVEN IN HOSPITAL Time: Lactobacillus Acidophilus (Probiotic) 10 BILLION CELL CAPSULE 1 Capsule ORAL THREE TIMES DAILY Qty = 30 Comments: Last Taken: 04/15 Time: 9AM Loperamide HCl (Loperamide) 2 MG CAPSULE 2 Capsule ORAL EVERY SIX HOURS as needed for Diarrhea Qty = 40 Comments: Last Taken: 04/15 Time: 9AM Start taking the following new medications: Diphenoxylate HCl/Atropine (Lomotil 2.5-0.025 MG Tablet) 2.5 MG-0.025 MG TABLET 1 Tablet ORAL THREE TIMES DAILY as needed for Diarrhea Qty = 30 No Refills Comments: Last Taken: 04/15 Time: 6PM Erythromycin Base (Erythromycin) 5 MG/GRAM (0.5 %) OINT...G. 1 Application In the eye 4 times daily as needed as needed for Eye redness Qty = 3.5 No Refills Instructions: apply 1 cm ribbon into the lower conjunctival sac Simethicone (Gas-X) 80 MG TAB.CHEW 0.5 Tablet ORAL EVERY SIX HOURS NEEDED as needed for Gas Qty = 10 No Refills Lactobacillus Acidophilus (Probiotic) 10 BILLION CELL CAPSULE 1 Capsule ORAL THREE TIMES DAILY Qty = 30 No Refills Loperamide HCl (Loperamide) 2 MG CAPSULE 2 Capsule ORAL EVERY SIX HOURS as needed for Diarrhea Qty = 40 No Refills Magnesium Oxide (Magnesium) 400 MG CAPSULE 1 Capsule ORAL TWICE DAILY Qty = 60 No Refills Comments: Last Taken: 04/15 Time: 9AM Copies To: DIEGO RIVERO,[facility]; KP RIVERO,MOE Oliver; KLEBER REYNOSO MD Attending Review Statement Documenting Attending: KLEBER REYNOSO MD
== END 2016-04-15 19:00 | DRG 394 ==
LOC: ENRESERVTM → ENRESERVDT → ERH 12:34 → ENPENDDIS 14:58 → 1NO 14:58 → ERHI 14:58 → 1NO 16:53
PROVIDERS: Internal Medicine; Physician Assistant Surgical; Radiology Diagnostic Radiology; Student in an Organized Health Care Education/Training Program; ADMIT Internal Medicine
PROC: 30233N1 Transfusion of Nonautologous Red Blood Cells into Peripheral Vein, Percutaneous Approach (ICD-10-PCS; principal; 2016-04-11)
DX: K52.1 Toxic gastroenteritis and colitis (principal); E87.1 Hypo-osmolality and hyponatremia; D69.59 Other secondary thrombocytopenia; E86.0 Dehydration; E83.42 Hypomagnesemia; C50.911 Malignant neoplasm of unspecified site of right female breast; E87.6 Hypokalemia; T45.1X5A Adverse effect of antineoplastic and immunosuppressive drugs, initial encounter; E66.9 Obesity, unspecified; Z68.31 Body mass index [BMI] 31.0-31.9, adult; D64.9 Anemia, unspecified; E78.5 Hyperlipidemia, unspecified; Z87.891 Personal history of nicotine dependence
CPT/HCPCS: 1NP; 36415; 81001; 82436; 86920; 87040; 87045; 87086; 93005; 93010; 96365; 99291; J0780; J1642; J2405; J3490; J7040; J7060; P9016